=== PATIENT | female | born 1970 | race American Indian/Alaskan Native ===

== ENCOUNTER 2016-09-20 12:01 | Emergency (ER) | payer SELFPAY ==
--- NOTE | 2016-09-20 12:10 | Emergency Department Report ---
Chief Complaint: Dyspnea/Respdistress Stated Complaint: SOB/LEFT SWOLLEN FOOT Time Seen by Provider: 09/20/16 12:07 - HPI History of Present Illness: PT c/o cough x 2 weeks, + sob , + L foot swelling - ROS Review of Systems: - fever +orthopnea + productive cough - Exam Physical Exam: PT looks well, non toxic karly lung sounds clear + cough during evaluation MSE screening note: Focused history and physical exam performed. Due to findings the following was ordered: labs, ekg, xr ED Disposition for MSE Condition: Stable
[2016-09-20 12:38] LABS: Basophils % (Auto) 0.8 % (0.0-1.8); Eosinophils % (Auto) 0.5 % (0.0-4.3); Mean Corpuscular HGB Conc 29 % (30-34); Platelet Count 248 K/mm3 (140-440); Red Blood Count 3.77 M/mm3 (3.65-5.03); White Blood Count 7.7 K/mm3 (4.5-11.0)
[2016-09-20 12:39] LABS: Hemoglobin 7.1 gm/dl (10.1-14.3)
[2016-09-20 12:40] LABS: Hematocrit 24.6 % (30.3-42.9); Mean Corpuscular Hemoglobin 19 pg (28-32); Mean Corpuscular Volume 65 fl (79-97); Red Cell Distribution Width 22.9 % (13.2-15.2)
[2016-09-20 12:47] LABS: Alanine Aminotransferase 8 units/L (7-56); Albumin 3.9 g/dL (3.9-5); Albumin/Globulin Ratio 1.6 %; Alkaline Phosphatase 46 units/L (35-129); Anion Gap 17 mmol/L; BUN/Creatinine Ratio 8.18; Blood Urea Nitrogen 9 mg/dL (7-17); Calcium 8.5 mg/dL (8.4-10.2); Carbon Dioxide 22 mmol/L (22-30); Chloride 105.1 mmol/L (98-107); Glucose 88 mg/dL (65-100); Sodium 140 mmol/L (137-145); Total Protein 6.4 g/dL (6.3-8.2)
--- NOTE | 2016-09-20 12:56 | XRay Report ---
CHEST 2 VIEWS INDICATION: Dyspnea. COMPARISON: 02/09/2016 FINDINGS: PA and lateral chest radiographs again demonstrate borderline cardiomegaly and slightly prominent bronchovascular markings/congestion centrally. No large pleural effusions or CHF. Minimal fluid or thickening along the fissures again noted. Unremarkable bones. CONCLUSION: No significant interval change, as described. Thank you for the opportunity to participate in this patient's care.
[2016-09-20 13:53] LABS: Bacteria,Urine 1+ /HPF (Negative); Bilirubin,Urine NEG (Negative); Blood,Urine SM (Negative); Ketones,Urine NEG (Negative); Leukocyte Esterase,Urine SM (Negative); Mucus,Urine FEW /HPF; Nitrite,Urine NEG (Negative); Protein,Urine <15 mg/dL mg/dL (Negative); Urobilinogen,Urine < 2.0 mg/dL (<2.0)
--- NOTE | 2016-09-21 01:23 | Emergency Department Report ---
ED Shortness of Breath HPI - General Chief Complaint: Dyspnea/Respdistress Stated Complaint: SOB/LEFT SWOLLEN FOOT Time Seen by Provider: 09/20/16 12:07 Source: patient Mode of arrival: Ambulatory Limitations: No Limitations - History of Present Illness MD Complaint: shortness of breath, cough -: Gradual Severity: mild Quality: dull, aching Consistency: intermittent Improves With: nothing Worsens With: nothing Known History Of: asthma Context: recent URI Treatments Prior to Arrival: oxygen - Related Data Home Oxygen Therapy: No Previous Rx's Medication Instructions Recorded Last Taken Type ALBUTEROL Inhaler [ProAir HFA 2 puff IH QID PRN #1 inhalation 09/21/16 Unknown Rx Inhaler] Amoxicillin/K Clav Tab [Augmentin 1 tab PO Q12HR #20 tab 09/21/16 Unknown Rx 875MG TAB] Ferrous Gluconate [Fergon 325 MG 325 mg PO TID #60 tablet 09/21/16 Unknown Rx tab] Fluticasone [Flonase] 1 spray NS QDAY #1 bottle 09/21/16 Unknown Rx Hydrochlorothiazide [HCTZ] 25 mg PO QDAY #30 tablet 09/21/16 Unknown Rx Lisinopril [Zestril TAB] 20 mg PO QDAY #30 tablet 09/21/16 Unknown Rx Lisinopril/Hydrochlorothiazide 1 each PO DAILY #30 tablet 09/21/16 Unknown Rx [Zestoretic 20-12.5 mg] Lisinopril/Hydrochlorothiazide 1 tab PO QDAY #90 tab 09/21/16 Unknown Rx [Zestoretic 20-12.5 mg] Multivitamin Tab W-MINERAL 1 tab PO DAILY #30 tablet 09/21/16 Unknown Rx [Multiple Vitamin/Mineral (Theragran M)] Nitrofurantoin [place]/M-Cryst 100 mg PO Q12HR #14 capsule 09/21/16 Unknown Rx [Macrobid CAP] guaiFENesin/CODEINE [Robitussin AC] 10 ml PO QHS PRN #50 ml 09/21/16 Unknown Rx predniSONE [Deltasone] 50 mg PO QAM #5 tablet 09/21/16 Unknown Rx Allergies Allergy/AdvReac Type Severity Reaction Status Date / Time No Known Allergies Allergy Unverified 12/12/12 10:10 ED Review of Systems ROS: Stated complaint: SOB/LEFT SWOLLEN FOOT Other details as noted in HPI Comment: All other systems reviewed and negative ED Past Medical Hx - Past Medical History Previous Medical History?: Yes Hx Hypertension: Yes Additional medical history: anemia- states had a blood transfusion in 2013 - Surgical History Past Surgical History?: Yes Additional Surgical History: tubal ligation - Social History Smoking Status: Current Every Day Smoker Substance Use Type: Alcohol - Medications Home Medications: Home Medications Medication Instructions Recorded Confirmed Last Taken Type ALBUTEROL Inhaler [ProAir HFA 2 puff IH QID PRN #1 inhalation 09/21/16 Unknown Rx Inhaler] Amoxicillin/K Clav Tab [Augmentin 1 tab PO Q12HR #20 tab 09/21/16 Unknown Rx 875MG TAB] Ferrous Gluconate [Fergon 325 MG 325 mg PO TID #60 tablet 09/21/16 Unknown Rx tab] Fluticasone [Flonase] 1 spray NS QDAY #1 bottle 09/21/16 Unknown Rx Hydrochlorothiazide [HCTZ] 25 mg PO QDAY #30 tablet 09/21/16 Unknown Rx Lisinopril [Zestril TAB] 20 mg PO QDAY #30 tablet 09/21/16 Unknown Rx Lisinopril/Hydrochlorothiazide 1 each PO DAILY #30 tablet 09/21/16 Unknown Rx [Zestoretic 20-12.5 mg] Lisinopril/Hydrochlorothiazide 1 tab PO QDAY #90 tab 09/21/16 Unknown Rx [Zestoretic 20-12.5 mg] Multivitamin Tab W-MINERAL 1 tab PO DAILY #30 tablet 09/21/16 Unknown Rx [Multiple Vitamin/Mineral (Theragran M)] Nitrofurantoin [place]/M-Cryst 100 mg PO Q12HR #14 capsule 09/21/16 Unknown Rx [Macrobid CAP] guaiFENesin/CODEINE [Robitussin AC] 10 ml PO QHS PRN #50 ml 09/21/16 Unknown Rx predniSONE [Deltasone] 50 mg PO QAM #5 tablet 09/21/16 Unknown Rx ED Physical Exam - General Limitations: No Limitations General appearance: alert, in no apparent distress - Head Head exam: Present: atraumatic, normocephalic - Eye Eye exam: Present: normal appearance - ENT ENT exam: Present: mucous membranes moist - Neck Neck exam: Present: normal inspection - Respiratory Respiratory exam: Present: normal lung sounds bilaterally. Absent: respiratory distress - Cardiovascular Cardiovascular Exam: Present: regular rate, normal rhythm. Absent: systolic murmur, diastolic murmur, rubs, gallop - GI/Abdominal GI/Abdominal exam: Present: soft, normal bowel sounds - Extremities Exam Extremities exam: Present: normal inspection - Back Exam Back exam: Present: normal inspection - Neurological Exam Neurological exam: Present: alert, oriented X3 - Psychiatric Psychiatric exam: Present: normal affect, normal mood - Skin Skin exam: Present: warm, dry, intact, normal color. Absent: rash ED Course Vital Signs 09/20/16 09/21/16 09/21/16 12:05 00:09 00:10 Temperature 99 F 98.7 F Pulse Rate 110 H 104 H Respiratory 18 20 20 Rate Blood Pressure 168/109 Blood Pressure 168/114 [Left] O2 Sat by Pulse 100 98 98 Oximetry ED Medical Decision Making - Lab Data Result diagrams: 09/20/16 12:17 09/20/16 12:17 - EKG Data -: EKG Interpreted by Me - EKG Data Interpretation: no acute changes - Medical Decision Making patient been doing well, will refill her meds, cxr and ekg negative no evidence to admit at [facility]. Critical care attestation.: If time is entered above; I have spent that time in minutes in the direct care of this critically ill patient, excluding procedure time. ED Disposition Clinical Impression: UTI (urinary tract infection), Bifascicular bundle branch block Disposition: DC-01 TO HOME OR SELFCARE Is pt being admited?: No Does the pt Need Aspirin: No Condition: Good Prescriptions: guaiFENesin/CODEINE [Robitussin AC] 10 ml PO QHS PRN #50 ml PRN Reason: Cough ALBUTEROL Inhaler [ProAir HFA Inhaler] 2 puff IH QID PRN #1 inhalation PRN Reason: Shortness Of Breath Amoxicillin/K Clav Tab [Augmentin 875MG TAB] 1 tab PO Q12HR #20 tab Ferrous Gluconate [Fergon 325 MG tab] 325 mg PO TID #60 tablet Fluticasone [Flonase] 1 spray NS QDAY #1 bottle Hydrochlorothiazide [HCTZ] 25 mg PO QDAY #30 tablet Lisinopril [Zestril TAB] 20 mg PO QDAY #30 tablet Lisinopril/Hydrochlorothiazide [Zestoretic 20-12.5 mg] 1 each PO DAILY #30 tablet Lisinopril/Hydrochlorothiazide [Zestoretic 20-12.5 mg] 1 tab PO QDAY #90 tab Multivitamin Tab W-MINERAL [Multiple Vitamin/Mineral (Theragran M)] 1 tab PO DAILY #30 tablet Nitrofurantoin [place]/M-Cryst [Macrobid CAP] 100 mg PO Q12HR #14 capsule predniSONE [Deltasone] 50 mg PO QAM #5 tablet Referrals: PRIMARY CARE, [Primary Care Provider] - 3-5 Days Forms: Work/School Release Form(ED) Time of Disposition: 01:27
[2016-09-21] MEDS ORDERED: DUONEB 0.5 MG-3 MG/3 ML SOLN IH ONE (01:50)
[2016-09-21 02:49] VITALS: BP 155/99
== END 2016-09-21 02:50 | disposition home or self-care (01) ==
LOC: ED 12:01
DX: I45.2 Bifascicular block (principal); N39.0 Urinary tract infection, site not specified; I10 Essential (primary) hypertension; J45.909 Unspecified asthma, uncomplicated; F17.200 Nicotine dependence, unspecified, uncomplicated
CPT/HCPCS: 36415; 71020; 80053; 81001; 83880; 84484; 84703; 85025; 93005; 93010; 94640

== ENCOUNTER 2018-11-03 06:29 | Inpatient (IN) | payer OTHER ==
[2018-11-03] MEDS ORDERED: ASPIRIN PO ONE (06:54)
--- NOTE | 2018-11-03 07:24 | XRay Report ---
CHEST 1 VIEW INDICATION / CLINICAL INFORMATION: Chest Pain. COMPARISON: None available. FINDINGS: SUPPORT DEVICES: None. HEART / MEDIASTINUM: No significant abnormality. LUNGS / PLEURA: No significant pulmonary or pleural abnormality. No pneumothorax. ADDITIONAL FINDINGS: No significant additional findings. IMPRESSION: No acute pulmonary or pleural abnormality. No interval change from 09/20/2016. Signer Name: Mitesh Escobedo MD FACLesly Signed: 11/03/2018 7:20 AM Workstation Name: [email or web address]
[2018-11-03 07:25] LABS: Eosinophils % (Auto) 0.3 % (0.0-4.3); Monocytes # (Auto) 0.4 K/mm3 (0.0-0.8); Monocytes % (Auto) 8.1 % (0.0-7.3)
[2018-11-03 07:42] LABS: Red Blood Count 3.33 M/mm3 (3.65-5.03)
[2018-11-03] MEDS ORDERED: NITRO-BID 2% TP ONE (07:43)
[2018-11-03 07:44] LABS: Basophils % (Auto) 0.3 % (0.0-1.8); Hemoglobin 5.6 gm/dl (10.1-14.3); Lymphocytes # (Auto) 0.3 K/mm3 (1.2-5.4); Lymphocytes % (Auto) 4.9 % (13.4-35.0); Mean Corpuscular HGB Conc 28 % (30-34); Mean Corpuscular Volume 60 fl (79-97); Platelet Count 212 K/mm3 (140-440); Red Cell Distribution Width 22.4 % (13.2-15.2)
[2018-11-03] MEDS ORDERED: CATAPRES PO ONE (07:44)
[2018-11-03 07:47] LABS: BUN/Creatinine Ratio 15; Blood Urea Nitrogen 9 mg/dL (7-17); Calcium 8.6 mg/dL (8.4-10.2); Hemolysis Index 1
--- NOTE | 2018-11-03 07:50 | Emergency Department Report ---
HPI - General Chief Complaint: Chest Pain Time Seen by Provider: 11/03/18 07:36 - HPI HPI: Room 3 The patient is a 48-year-old female presenting with a chief complaint chest pain and weakness. The patient states since yesterday she felt weak and has had intermittent left-sided chest pain. Patient describes her chest pain is sharp dull pressure burning and aching in nature. Patient also admits to shortness of breath, diaphoresis and nausea without vomiting. Patient states she's never had a stress test or cardiac catheterization Location: [See above] Duration: [See above] Quality: [See above] Severity: [See above] Modifying factors: [see above] Context: [see above] Mode of transportation: [not driving] ED Past Medical Hx - Past Medical History Hx Hypertension: Yes Hx Heart Attack/AMI: Yes Additional medical history: anemia- states had a blood transfusion in 2013 - Surgical History Past Surgical History?: Yes Additional Surgical History: tubal ligation - Family History Family history: no significant - Social History Smoking Status: Current Every Day Smoker (1/2 pack per day) Substance Use Type: None (denies illicit drug use), Alcohol (frequently) - Medications Home Medications: Home Medications Medication Instructions Recorded Confirmed Last Taken Type ALBUTEROL Inhaler (OR & NICU) 2 puff IH QID PRN #1 inhalation 09/21/16 Unknown Rx [ProAir HFA Inhaler] Amoxicillin/K Clav Tab [Augmentin 1 tab PO Q12HR #20 tab 09/21/16 Unknown Rx 875MG TAB] Ferrous Gluconate [Fergon 325 MG 325 mg PO TID #60 tablet 09/21/16 Unknown Rx tab] Fluticasone [Flonase] 1 spray NS QDAY #1 bottle 09/21/16 Unknown Rx Lisinopril [Zestril TAB] 20 mg PO QDAY #30 tablet 09/21/16 Unknown Rx Lisinopril/Hydrochlorothiazide 1 each PO DAILY #30 tablet 09/21/16 Unknown Rx [Zestoretic 20-12.5 mg] Lisinopril/Hydrochlorothiazide 1 tab PO QDAY #90 tab 09/21/16 Unknown Rx [Zestoretic 20-12.5 mg] Multivitamin Tab W-MINERAL 1 tab PO DAILY #30 tablet 09/21/16 Unknown Rx [Multiple Vitamin/Mineral (Theragran M)] Nitrofurantoin [place]/M-Cryst 100 mg PO Q12HR #14 capsule 09/21/16 Unknown Rx [Macrobid CAP] guaiFENesin/CODEINE [Robitussin AC] 10 ml PO QHS PRN #50 ml 09/21/16 Unknown Rx hydroCHLOROthiazide [HCTZ] 25 mg PO QDAY #30 tablet 09/21/16 Unknown Rx predniSONE [Deltasone] 50 mg PO QAM #5 tablet 09/21/16 Unknown Rx ED Review of Systems ROS: Stated complaint: CHEST PAIN SOB Other details as noted in HPI Constitutional: diaphoresis Eyes: denies: eye pain ENT: denies: throat pain Respiratory: shortness of breath Cardiovascular: chest pain Endocrine: no symptoms reported Gastrointestinal: nausea. denies: vomiting Genitourinary: denies: dysuria Musculoskeletal: denies: back pain Neurological: denies: headache Physical Exam - Physical Exam Vital Signs: Vital Signs 11/03/18 06:51 Temperature 98.6 F Pulse Rate 99 H Respiratory 20 Rate Blood Pressure 170/94 O2 Sat by Pulse 99 Oximetry Physical Exam: GENERAL: The patient is well-developed well-nourished female lying on stretcher not appearing to be in acute distress. [] HEENT: Normocephalic. Atraumatic. Extraocular motions are intact. Patient has moist mucous membranes. NECK: Supple. Trachea midline CHEST/LUNGS: Clear to auscultation. There is no respiratory distress noted. HEART/CARDIOVASCULAR: Regular. There is no tachycardia. There is no gallop rub or murmur. ABDOMEN: Abdomen is soft, nontender. Patient has normal bowel sounds. There is no abdominal distention. SKIN: There is no rash. There is no edema. There is no diaphoresis. NEURO: The patient is awake, alert, and oriented. The patient is cooperative. The patient has normal speech MUSCULOSKELETAL: There is no evidence of acute injury. ED Course Vital Signs 11/03/18 06:51 Temperature 98.6 F Pulse Rate 99 H Respiratory 20 Rate Blood Pressure 170/94 O2 Sat by Pulse 99 Oximetry ED Medical Decision Making - Lab Data Result diagrams: 11/03/18 06:58 11/03/18 06:58 Laboratory Tests 11/03/18 11/03/18 06:58 06:58 WBC 5.2 RBC 3.33 L Hgb 5.6 L* Hct 20.0 L MCV 60 L MCH 17 L MCHC 28 L RDW 22.4 H Plt Count 212 Lymph % (Auto) 4.9 L [place] % (Auto) 8.1 H Eos % (Auto) 0.3 Baso % (Auto) 0.3 Lymph # 0.3 L [place] # 0.4 Eos # 0.0 Baso # 0.0 Seg Neutrophils % 86.4 H Seg Neutrophils # 4.5 Sodium 141 Potassium 3.7 Chloride 105.8 Carbon Dioxide 20 L Anion Gap 19 BUN 9 Creatinine 0.6 L Estimated GFR > 60 BUN/Creatinine Ratio 15 Glucose 82 Calcium 8.6 Troponin T < 0.010 - EKG Data -: EKG Interpreted by Me EKG shows normal: sinus rhythm Rate: normal - EKG Data When compared to previous EKG there are: no significant change Interpretation: unchanged when compared t (09/20/2016) - Radiology Data Radiology results: report reviewed (chest x-ray), image reviewed (chest x-ray) interpreted by me: Chest x-ray-no focal infiltrate, no pneumothorax [facility] [address] [place] [address] XRay Report Signed Patient: NADEGE NEWSOME MR#: [id number] : 1970 Acct:[id number] Age/Sex: 48 / F ADM Date: 11/03/18 Loc: ED Attending Dr: Ordering Physician: YOHAN HOOVER MD Date of Service: 11/03/18 Procedure(s): XR chest 1V ap Accession Number(s): [id number] cc: ED MD SNEHA Fluoro Time In Minutes: CHEST 1 VIEW INDICATION / CLINICAL INFORMATION: Chest Pain. COMPARISON: None available. FINDINGS: SUPPORT DEVICES: None. HEART / MEDIASTINUM: No significant abnormality. LUNGS / PLEURA: No significant pulmonary or pleural abnormality. No pneumothorax. ADDITIONAL FINDINGS: No significant additional findings. IMPRESSION: No acute pulmonary or pleural abnormality. No interval change from 09/20/2016. Signer Name: Mitesh Escobedo MD FACR Signed: 11/03/2018 7:20 AM Workstation Name: [id number] Transcribed By: MS Dictated By: Mitesh Escobedo MD Electronically Authenticated By: Mitesh Escobedo MD Signed Date/Time: 11/03/18719 DD/ TD/TT: - Differential Diagnosis ACS, symptomatic anemia, pericarditis, GERD Critical care attestation.: If time is entered above; I have spent that time in minutes in the direct care of this critically ill patient, excluding procedure time. ED Disposition Clinical Impression: Chest pain, Symptomatic anemia Disposition: OP ADMIT IP TO THIS HOSP Is pt being admited?: Yes Does the pt Need Aspirin: Yes Condition: Fair Instructions: Chest Pain (ED) Referrals: YASMIN RUVALCABA MD [Primary Care Provider] - 3-5 Days Time of Disposition: 08:06 (hospitalist paged)
[2018-11-03] MEDS ORDERED: NACL 0.9% 500 ML 500 ML IV ONE ×2 (08:05→08:26)
[2018-11-03] MEDS ORDERED: NACL 0.9% 500 ML 500 ML ONE ×2 (09:39→12:29)
[2018-11-03] MEDS ORDERED: APRESOLINE IV ONE (12:17)
--- NOTE | 2018-11-03 12:38 | History and Physical Report ---
History of Present Illness Date of examination: 11/03/18 Date of admission: 11/03/18 08:22 Chief complaint: chest pain History of present illness: Patient is 48 yo with history of hypertension, obesity, uterine fibroids with menorrhagia. She presents with chest pain and shortness of breath for 1 day. Chest pain is 9 out of 10 in intensity, left-sided, like a tightness, worse on exertion improves with rest. She also has shortness of breath which is worse on exertion. And dizziness. She was concerned therefore came to Emergency department for further evaluation. In the emergency department she was found to have a hemoglobin of 5.6. Troponin is normal. Will admit for transfusion and to rule out acute coronary syndrome. Patient has history of uterine fibroids with menorrhagia having heavy bleeding for 7-10 days. shee states that she is having difficulty getting insurance to approve surgery. Past History Past Medical History: heart failure (systolic), hypertension, other (Fibroid, menorrhagia) Past Surgical History: Other (tubal ligation) Social history: lives with family, smoking (1 pack a day), full code, other (Alcohol 2-3 times a week) Family history: diabetes, hypertension Medications and Allergies Allergies Allergy/AdvReac Type Severity Reaction Status Date / Time No Known Allergies Allergy Unverified 12/12/12 10:10 Home Medications Medication Instructions Recorded Confirmed Last Taken Type Carvedilol [Coreg] 6.25 mg PO BIDWM 11/03/18 11/03/18 Unknown History Furosemide [Lasix TAB] 40 mg PO QDAY 11/03/18 11/03/18 Unknown History Review of Systems All systems: negative (No fever, no cough, no abdominal pain, All other systenms reviewed and are negative) Exam - Physical Exam Narrative exam: Gen: Not in acute distress, lying in bed, obese HEENT: Normocephalic, atraumatic Neck: supple, no JVD Heart: S1 and S2 reg, no murmurs, rubs or gallop Lungs: Clear, no crackles, no rhonchi Abd: soft, non tender, non distended, normal BS, Ext: No edema, no clubbing, no cyanosis Neuro: Awake,alert, Oriented X 3. No focal neuro signs Psych: normal mood - Constitutional Vitals: Temp Pulse Resp BP Pulse Ox 98.3 F 87 18 179/94 100 08/02/19 12:14 11/03/18 12:14 11/03/18 12:14 11/03/18 12:14 11/03/18 12:14 Results - Labs CBC & Chem 7: 11/04/18 04:49 11/04/18 04:49 Labs: Abnormal lab results 11/03/18 11/03/18 11/03/18 Range/Units 06:58 06:58 07:30 RBC 3.33 L (3.65-5.03) M/mm3 Hgb 5.6 L* (10.1-14.3) gm/dl Hct 20.0 L (30.3-42.9) % MCV 60 L (79-97) fl MCH 17 L (28-32) pg MCHC 28 L (30-34) % RDW 22.4 H (13.2-15.2) % Lymph % (Auto) 4.9 L (13.4-35.0) % [place] % (Auto) 8.1 H (0.0-7.3) % Lymph # 0.3 L (1.2-5.4) K/mm3 Seg Neutrophils % 86.4 H (40.0-70.0) % Carbon Dioxide 20 L (22-30) mmol/L Creatinine 0.6 L (0.7-1.2) mg/dL Crossmatch See Detail Assessment and Plan Chest pain Admit to Telemetry to r/o acute coronary syndrome Aspirin Serial Troponins Stress test tomorrow after anemia controlled Anemia due to chronic blood loss from fibroids Transfuse 3 units PRBC To follow up as outpatient Uterine fibroids with menorrhagia Chronic systolic CHF Will obtain Echo Continue lasix and Coreg Obesity I counseled her on diet Full code status.
[2018-11-03] MEDS ORDERED: APRESOLINE IV PRN (16:38)
[2018-11-03] MEDS ORDERED: MORPHINE IV PRN (16:46)
[2018-11-03] MEDS ORDERED: ZOFRAN IV PRN (16:46)
[2018-11-03] MEDS ORDERED: SODIUM CHLORIDE FLUSH SYRINGE 10 ML IV PRN ×2 (16:46→18:57)
[2018-11-03] MEDS ORDERED: TYLENOL PO PRN (16:46)
[2018-11-03 17:21] LABS: Hematocrit 25.8 % (30.3-42.9); Hemoglobin 7.7 gm/dl (10.1-14.3)
[2018-11-03] MEDS: NORVASC PO SCH (17:28)
[2018-11-03] MEDS: LASIX PO SCH (17:29)
[2018-11-03] MEDS: COREG PO SCH ×2 (17:29→23:08)
[2018-11-03] MEDS ORDERED: NITROSTAT SL PRN (18:57)
[2018-11-03] MEDS ORDERED: NACL 0.9% 500 ML 500 ML IV NR (19:01)
[2018-11-03] MEDS: SODIUM CHLORIDE FLUSH SYRINGE 10 ML IV SCH (23:09)
[2018-11-04 05:38] LABS: Hematocrit 29.5 % (30.3-42.9); Hemoglobin 9.1 gm/dl (10.1-14.3); Mean Corpuscular HGB Conc 31 % (30-34); Mean Corpuscular Volume 67 fl (79-97); Platelet Count 180 K/mm3 (140-440); Red Blood Count 4.44 M/mm3 (3.65-5.03); Red Cell Distribution Width 27.9 % (13.2-15.2)
[2018-11-04 05:43] LABS: BUN/Creatinine Ratio 10; Blood Urea Nitrogen 5 mg/dL (7-17); Calcium 9.1 mg/dL (8.4-10.2); Hemolysis Index 17
[2018-11-04 06:47] LABS: Total Cells Counted 100
[2018-11-04 06:48] LABS: Anisocytosis 3+; Poikilocytosis 3+
[2018-11-04 06:51] LABS: Platelet Estimate Consistent w Auto
[2018-11-04] MEDS ORDERED: LEXISCAN IV ONE ×2 (08:10→08:48)
[2018-11-04] MEDS: LASIX PO SCH (11:15)
[2018-11-04] MEDS: COREG PO SCH ×2 (11:15→21:20)
[2018-11-04] MEDS: NORVASC PO SCH (11:15)
[2018-11-04] MEDS: SODIUM CHLORIDE FLUSH SYRINGE 10 ML IV SCH ×2 (11:16→21:21)
--- NOTE | 2018-11-04 13:41 | Treadmill Report ---
NUCLEAR STRESS TEST REPORT DESCRIPTION OF PROCEDURE: The patient was brought to the Nuclear Cardiology Lab and Lexiscan stress test was performed and subsequently nuclear images were obtained. The patient tolerated the Lexiscan testing well with no significant EKG abnormalities. Post-stress images reveal anteroapical defect and mild inferior defect, both appear to improve slightly during rest. Accompanying gated study shows severe left ventricular systolic dysfunction with a calculated ejection fraction of 29%. IMPRESSION: 1. Abnormal nuclear stress test with severe left ventricular systolic dysfunction with ejection fraction of 29%. 2. Anteroapical defect which is mostly fixed with minimal improvement during rest. This may represent previous infarction in this area. 3. Suggest clinical correlation. JOB# [id number] ANKITA/NTS
--- NOTE | 2018-11-04 14:22 | Progress Note ---
Assessment and Plan Assessment and plan: Chest pain Admitted to Telemetry Aspirin Serial Troponins Stress test abnormal For cardiac cath on Tuesday. I discussed with Dr. Albania Hubbard, cardiology patient states she did cardiac cath about 3 yrs ago at [facility]. Records requested Anemia due to chronic blood loss from fibroids Transfused 3 units PRBC To follow up as outpatient Uterine fibroids with menorrhagia Chronic systolic CHF Will obtain Echo Continue lasix and Coreg Obesity I counseled her on diet Full code status. Hospitalist Physical - Physical exam Narrative exam: Gen: Not in acute distress, lying in bed, obese HEENT: Normocephalic, atraumatic Neck: supple, no JVD Heart: S1 and S2 reg, no murmurs, rubs or gallop Lungs: Clear, no crackles, no rhonchi Abd: soft, non tender, non distended, normal BS, Ext: No edema, no clubbing, no cyanosis Neuro: Awake,alert, Oriented X 3. No focal neuro signs Psych: normal mood - Constitutional Vitals: Temp Pulse Resp BP Pulse Ox 98.1 F 80 18 155/91 100 11/04/18 11:10 11/04/18 04:01 11/04/18 11:10 11/04/18 11:15 11/04/18 04:01 Results - Labs CBC & Chem 7: 11/04/18 04:49 11/04/18 04:49 Labs: Laboratory Last Values WBC 3.9 K/mm3 (4.5-11.0) L 11/04/18 04:49 RBC 4.44 M/mm3 (3.65-5.03) 11/04/18 04:49 Hgb 9.1 gm/dl (10.1-14.3) L 11/04/18 04:49 Hct 29.5 % (30.3-42.9) L 11/04/18 04:49 MCV 67 fl (79-97) L 11/04/18 04:49 MCH 21 pg (28-32) L 11/04/18 04:49 MCHC 31 % (30-34) 11/04/18 04:49 RDW 27.9 % (13.2-15.2) H 11/04/18 04:49 Plt Count 180 K/mm3 (140-440) 11/04/18 04:49 Lymph % (Auto) Automatic Thread Winder 11/04/18 04:49 [place] % (Auto) 8.1 % (0.0-7.3) H 11/03/18 06:58 Eos % (Auto) 0.3 % (0.0-4.3) 11/03/18 06:58 Baso % (Auto) Automatic Thread Winder 11/04/18 04:49 Lymph # 0.3 K/mm3 (1.2-5.4) L 11/03/18 06:58 [place] # 0.4 K/mm3 (0.0-0.8) 11/03/18 06:58 Eos # 0.0 K/mm3 (0.0-0.4) 11/03/18 06:58 Baso # 0.0 K/mm3 (0.0-0.1) 11/03/18 06:58 Add Manual Diff Complete 11/04/18 04:49 Total Counted 100 11/04/18 04:49 Seg Neutrophils % Automatic Thread Winder 11/04/18 04:49 Seg Neuts % (Manual) 73.0 % (40.0-70.0) H 11/04/18 04:49 0 % 11/04/18 04:49 21.0 % (13.4-35.0) 11/04/18 04:49 Reactive Lymphs % (Man) 0 % 11/04/18 04:49 3.0 % (0.0-7.3) 11/04/18 04:49 2.0 % (0.0-4.3) 11/04/18 04:49 1.0 % (0.0-1.8) 11/04/18 04:49 0 % 11/04/18 04:49 0 % 11/04/18 04:49 0 % 11/04/18 04:49 0 % 11/04/18 04:49 Nucleated RBC % Not Reportable 11/04/18 04:49 Seg Neutrophils # 4.5 K/mm3 (1.8-7.7) 11/03/18 06:58 Seg Neutrophils # Man 2.8 K/mm3 (1.8-7.7) 11/04/18 04:49 Band Neutrophils # 0.0 K/mm3 11/04/18 04:49 0.8 K/mm3 (1.2-5.4) L 11/04/18 04:49 Abs React Lymphs (Man) 0.0 K/mm3 11/04/18 04:49 0.1 K/mm3 (0.0-0.8) 11/04/18 04:49 0.1 K/mm3 (0.0-0.4) 11/04/18 04:49 0.0 K/mm3 (0.0-0.1) 11/04/18 04:49 0.0 K/mm3 11/04/18 04:49 0.0 K/mm3 11/04/18 04:49 0.0 K/mm3 11/04/18 04:49 Blast Cells # 0.0 K/mm3 11/04/18 04:49 WBC Morphology Not Reportable 11/04/18 04:49 Hypersegmented Neuts Not Reportable 11/04/18 04:49 Hyposegmented Neuts Not Reportable 11/04/18 04:49 Hypogranular Neuts Not Reportable 11/04/18 04:49 Not Reportable 11/04/18 04:49 Not Reportable 11/04/18 04:49 Not Reportable 11/04/18 04:49 Not Reportable 11/04/18 04:49 Not Reportable 11/04/18 04:49 Not Reportable 11/04/18 04:49 Consistent w auto 11/04/18 04:49 Not Reportable 11/04/18 04:49 Plt Clumps, EDTA Not Reportable 11/04/18 04:49 Not Reportable 11/04/18 04:49 Not Reportable 11/04/18 04:49 Not Reportable 11/04/18 04:49 Plt Morphology Comment Giant platelets 11/04/18 04:49 RBC Morphology Not Reportable 11/04/18 04:49 Dimorphic RBCs Not Reportable 11/04/18 04:49 Not Reportable 11/04/18 04:49 Not Reportable 11/04/18 04:49 3+ 11/04/18 04:49 3+ 11/04/18 04:49 Few 11/04/18 04:49 Not Reportable 11/04/18 04:49 Not Reportable 11/04/18 04:49 Not Reportable 11/04/18 04:49 Not Reportable 11/04/18 04:49 Not Reportable 11/04/18 04:49 Not Reportable 11/04/18 04:49 Not Reportable 11/04/18 04:49 Not Reportable 11/04/18 04:49 Not Reportable 11/04/18 04:49 Not Reportable 11/04/18 04:49 Not Reportable 11/04/18 04:49 Not Reportable 11/04/18 04:49 Not Reportable 11/04/18 04:49 Few 11/04/18 04:49 Acanthocytes (Spur) Not Reportable 11/04/18 04:49 Rouleaux Not Reportable 11/04/18 04:49 Not Reportable 11/04/18 04:49 Not Reportable 11/04/18 04:49 Not Reportable 11/04/18 04:49 Not Reportable 11/04/18 04:49 Hem Pathologist Commnt No 11/04/18 04:49 Sodium 136 mmol/L (137-145) L 11/04/18 04:49 Potassium 3.5 mmol/L (3.6-5.0) L 11/04/18 04:49 Chloride 100.8 mmol/L (98-107) 11/04/18 04:49 Carbon Dioxide 24 mmol/L (22-30) 11/04/18 04:49 15 mmol/L 11/04/18 04:49 BUN 5 mg/dL (7-17) L 11/04/18 04:49 0.5 mg/dL (0.7-1.2) L 11/04/18 04:49 Estimated GFR > 60 ml/min 11/04/18 04:49 10 % 11/04/18 04:49 Glucose 89 mg/dL (65-100) 11/04/18 04:49 Calcium 9.1 mg/dL (8.4-10.2) 11/04/18 04:49 < 0.010 ng/mL (0.00-0.029) 11/04/18 04:49 Blood Type B POSITIVE 11/03/18 07:30 Antibody Screen Negative 11/03/18 07:30 Crossmatch See Detail 11/03/18 07:30 Active Medications - Current Medications Current Medications: Generic Name Dose Route Start Last Admin Trade Name Freq PRN Reason Stop Dose Admin Acetaminophen 650 mg 11/03/18 16:46 Tylenol PO Q4H PRN Pain MILD(1-3)/Fever >100.5/CAMACHO Amlodipine Besylate 5 mg 11/03/18 17:00 11/04/18 11:15 Norvasc PO 5 mg QDAY JOVANY Administration Carvedilol 6.25 mg 11/03/18 13:00 11/04/18 11:15 Coreg PO 6.25 mg BID JOVANY Administration Furosemide 40 mg 11/03/18 13:00 11/04/18 11:15 Lasix PO 40 mg QDAY JOVANY Administration Hydralazine HCl 10 mg 11/03/18 16:38 Apresoline IV Q4HR PRN SBP>170 or DBP>110 Morphine Sulfate 2 mg 11/03/18 16:46 Morphine IV Q4H PRN Pain, Moderate (4-6) Nitroglycerin 0.4 mg 11/03/18 18:57 Nitrostat SL Q5M PRN Chest Pain Ondansetron HCl 4 mg 11/03/18 16:46 Zofran IV Q8H PRN Nausea And Vomiting Sodium Chloride 10 ml 11/03/18 22:00 11/04/18 11:16 Sodium Chloride Flush Syringe 10 Ml IV 10 ml BID JOVANY Administration Sodium Chloride 10 ml 11/03/18 16:46 Sodium Chloride Flush Syringe 10 Ml IV PRN PRN LINE FLUSH Sodium Chloride 10 ml 11/03/18 18:57 Sodium Chloride Flush Syringe 10 Ml IV PRN PRN LINE FLUSH
--- NOTE | 2018-11-04 15:16 | Consultation ---
HISTORY OF PRESENT ILLNESS: The patient is a 48-year-old female who comes to the Emergency Room complaining about chest pain and general weakness and she also had mild difficulty in breathing, chest pain is described as sharp and occasionally burning type of nature. This has been going on for the last 2-3 weeks. Shortness of breath has been worsening. The patient is known to have longstanding history of hypertension. About 3-4 years ago, the patient was admitted with congestive heart failure to [facility], [place] and apparently she had a cardiac catheterization done at that time, which was negative for significant coronary artery disease. The patient smokes about half pack per day, drinks alcohol fairly regularly. The patient is also known to have had anemia. There is questionable history of myocardial infarction in the past. REVIEW OF SYSTEMS: HEAD, EYES, EARS, NOSE AND THROAT: No symptoms. ENDOCRINE: No history of diabetes. GASTROINTESTINAL: No abdominal pain, nausea, or vomiting. Bowel habits have been regular. GENITOURINARY: No symptoms. CENTRAL NERVOUS SYSTEM: No history of cerebrovascular accident or convulsive disorder. CARDIOVASCULAR: As mentioned earlier. PHYSICAL EXAMINATION: GENERAL: Adult female, well built, well nourished, in no distress. VITAL SIGNS: Blood pressure 150/90, pulse 80, respirations 18. HEENT: Unremarkable. NECK: Supple. No thyromegaly. Both carotids are palpable and equal. Neck veins are flat. CHEST: Symmetrical. LUNGS: Clear. HEART: S1 and S2 are heard well. No S3. ABDOMEN: Soft, nontender, no hepatosplenomegaly. Peristaltic sounds are heard. EXTREMITIES: No significant edema or calf tenderness. LABORATORY DATA: EKG: Sinus rhythm, right bundle branch block. Initial hemoglobin was 5.6. Today's hemoglobin is noted to be 9.1. Sodium 136, potassium 3.5, BUN 5, creatinine 0.5, troponin negative. NUCLEAR STRESS TEST: The patient underwent a nuclear stress test, which showed an ejection fraction of 28-29%, anteroapical mostly fixed defect with mild reversibility, which may indicate previous infarction in this area with jassi-infarction ischemia. IMPRESSION: 1. Cardiomyopathy with severe left ventricular systolic dysfunction, ejection fraction 29%. 2. Possible coronary artery disease with previous anteroapical infarction. 3. Hypertension. 4. History of chronic smoking. The patient is seen for cardiac evaluation. Clinically, she seems to be improving. PLAN: To obtain the old records and review the same. We will consider obtaining a cardiac catheterization on Tuesday. This is explained to the patient in detail. Thank you, Dr. Otero for allowing me to participate in the care of this pleasant lady. JOB# [id number] KBM/NTS
[2018-11-04] MEDS ORDERED: K-DUR PO ONE (21:13)
[2018-11-04] MEDS: ECOTRIN PO SCH (21:20)
[2018-11-04] MEDS: NITRO-BID 2% TP SCH (21:20)
[2018-11-04] MEDS: HEPARIN SUB-Q SCH (21:22)
[2018-11-05 06:22] LABS: BUN/Creatinine Ratio 10; Blood Urea Nitrogen 6 mg/dL (7-17); Calcium 9.2 mg/dL (8.4-10.2); Hemolysis Index 2
[2018-11-05] MEDS: ECOTRIN PO SCH (09:38)
[2018-11-05] MEDS: COREG PO SCH (09:38)
[2018-11-05] MEDS: LASIX PO SCH (09:39)
[2018-11-05] MEDS: NITRO-BID 2% TP SCH (09:39)
[2018-11-05] MEDS: NORVASC PO SCH (09:39)
[2018-11-05] MEDS: SODIUM CHLORIDE FLUSH SYRINGE 10 ML IV SCH (09:40)
[2018-11-05 09:44] VITALS: BP 150/85
[2018-11-05] MEDS: HEPARIN SUB-Q SCH (09:44)
--- NOTE | 2018-11-05 11:52 | Discharge Summary ---
Providers - Providers Date of Admission: 11/03/18 08:22 Date of discharge: 11/05/18 Attending physician: LUZ ELENA OREILLY 11/03/18 Consult to Cardiac Rehabilitation [CONS] Routine Reason For Exam: Phase I 11/03/18 15:05 Speech Therapy Evaluation and Treat [CONS] Routine Reason For Exam: swallow eval 11/04/18 11:41 Consult to Physician [CONS] Routine Comment: Consulting Provider: RADHA HUBBARD Physician Instructions: Reason For Exam: Chest pain, abnormal stress test Primary care physician: [facility] MD ERICK Hospitalization Condition: Fair Disposition: DC-01 TO HOME OR SELFCARE Core Measure Documentation - Palliative Care Palliative Care/ Comfort Measures: Not Applicable - Core Measures Any of the following diagnoses?: heart failure Exam - Constitutional Vitals: Temp Pulse Resp BP Pulse Ox 98.0 F 84 18 150/85 100 11/05/18 07:49 11/05/18 10:00 11/05/18 07:49 11/05/18 09:39 11/05/18 05:01 Plan Activity: advance as tolerated Diet: low fat, low cholesterol, low salt Additional Instructions: 1.Follow up with PCP or [facility] in 1 week. 2.Follow up with Dr. Albania Hubbard, cardiology in 1 week Follow up with: YASMIN RUVALCABA MD [Primary Care Provider] - 3-5 Days Forms: Work/School Release Form
[2018-11-05] MEDS ORDERED: ZESTRIL PO SCH (12:00)
--- NOTE | 2018-11-05 13:21 | Progress Note ---
Assessment and Plan Patient is doing better today she has no significant chest pain and difficulty breathing or palpitations. Patient had a cardiac catheterization done in February 2017 which showed no significant obstructive disease. She was noted to have a apical clot at that time and ejection fraction was about 30%. Currently the ejection fraction is 35-40% plan at this time is to continue with MARTY inhibitor and beta toya and monitor closely. Patient will be evaluated as an outpatient in about a week or 10 days. Case discussed with . Patient is advised to be on a strict low-sodium diet and to exercise regularly and also be compliant with low medications as well as cardiology follow up. - Patient Problems (1) Cardiomyopathy Current Visit: Yes Status: Acute (2) Chest pain Current Visit: Yes Status: Acute (3) Symptomatic anemia Current Visit: Yes Status: Acute Subjective Date of service: 11/05/18 Interval history: Patient is feeling well today. No chest pain. Dyspnea has improved. Objective Vital Signs Temp Pulse Pulse Resp BP Pulse Ox 11/05/18 10:00 84 11/05/18 09:39 80 150/85 11/05/18 09:38 80 150/85 11/05/18 07:49 98.0 F 18 150/83 11/05/18 07:39 89 18 11/05/18 05:01 98.2 F 76 18 145/89 100 11/04/18 23:50 98.2 F 74 18 137/76 100 11/04/18 23:11 83 11/04/18 19:35 98.0 F 92 H 18 133/77 99 11/04/18 16:34 98.6 F 18 142/87 - Physical Examination General: Appears Well Neck: Positive: neck supple Cardiac: Positive: Reg Rate and Rhythm Lungs: Positive: clear to auscultation Neuro: Positive: Grossly Intact Abdomen: Positive: Soft Extremities: Present: normal - Labs and Meds Comprehensive Metabolic Panel 11/05/18 Range/Units 05:40 Sodium 140 (137-145) mmol/L Potassium 4.1 (3.6-5.0) mmol/L Chloride 105.9 (98-107) mmol/L Carbon Dioxide 25 (22-30) mmol/L BUN 6 L (7-17) mg/dL Creatinine 0.6 L (0.7-1.2) mg/dL Glucose 100 (65-100) mg/dL Calcium 9.2 (8.4-10.2) mg/dL
== END 2018-11-05 13:05 | disposition home or self-care (01) | DRG 760 ==
LOC: ED 06:29 → 4A 08:22
PROVIDERS: ADMIT Internal Medicine; ATTEND Internal Medicine
PROC: 30233N1 Transfusion of Nonautologous Red Blood Cells into Peripheral Vein, Percutaneous Approach (ICD-10-PCS; principal; 2018-11-03)
DX: D25.9 Leiomyoma of uterus, unspecified (principal); I50.22 Chronic systolic (congestive) heart failure; Z88.8 Allergy status to other drugs, medicaments and biological substances; I25.2 Old myocardial infarction; Z98.51 Tubal ligation status; F17.200 Nicotine dependence, unspecified, uncomplicated; Z79.899 Other long term (current) drug therapy; E66.9 Obesity, unspecified; Z68.30 Body mass index [BMI] 30.0-30.9, adult; Z83.3 Family history of diabetes mellitus; Z82.49 Family history of ischemic heart disease and other diseases of the circulatory system; I11.0 Hypertensive heart disease with heart failure; D50.0 Iron deficiency anemia secondary to blood loss (chronic); Z71.3 Dietary counseling and surveillance; R07.89 Other chest pain
CPT/HCPCS: 36415; 71045; 78452; 80048; 82270; 84484; 85007; 85014; 85018; 85025; 86850; 86900; 86901; 86920; 87116; 93005; 93010; 93017; 93306; G0378; A9502; J0360; J1644; J2785; J7040; P9016

== ENCOUNTER 2019-02-06 07:44 | Emergency (ER) | payer SELFPAY ==
--- NOTE | 2019-02-06 08:27 | Emergency Department Report ---
ED General Adult HPI - General Chief complaint: Dyspnea/Respdistress Stated complaint: VOMITING/WEAK/LIGHT HEADED Time Seen by Provider: 02/06/19 08:24 Source: patient Mode of arrival: Ambulatory Limitations: No Limitations - History of Present Illness Initial comments: This is a 48-year-old female with a history of cardiomyopathy. She was admitted to this hospital in November and not seen a doctor since. Per the discharge summary to follow, she had symptomatic anemia requiring 3 units of blood. She has history of normal cardiac cath RE coronary arteries with the presence of a left atrial clot. She states she has an appointment with cardiology on February 13. She states he is still taking Lasix, potassium, calcium and I believe Carvedilol. Patient presented today for cough largely nonproductive associated with wheeze. She was concerned because she had one episode of posttussive emesis today. She does not have any ongoing nausea. She denies chest pain or abdominal pain. She states that she feels somewhat weak. She thinks she has the flu. Prior discharge summary: Hospitalization Condition: Fair Hospital course: Patient is 48 yo with history of hypertension, obesity, uterine fibroids with menorrhagia. She presents with chest pain and shortness of breath, dizziness. She was concerned therefore came to Emergency department for further evaluation. In the emergency department she was found to have a hemoglobin of 5.6. She was admitted, transfused 3 Units PRBC, hemoglobin came up to 9.1. Stress test was abnormal. She was evaluated by Cardiology. Records from [facility] show she had normal cardiac cath in Feb 2017. At that time she had LA clot which is not seen in current Echo. She was then discharged home. Total time spent on discharge, 34 mins Disposition: DC-01 TO HOME OR SELFCARE - Discharge Diagnoses (1) Uterine fibroid Status: Acute (2) Menorrhagia Status: Acute (3) Anemia due to chronic blood loss Status: Acute (4) Cardiomyopathy Status: Acute (5) Chest pain Status: Acute (6) Symptomatic anemia Status: Acute (7) UTI (urinary tract infection) Status: Acute (8) Chronic systolic CHF (congestive heart failure) Status: Acute - Related Data Home Medications Medication Instructions Recorded Confirmed Last Taken Carvedilol [Coreg] 6.25 mg PO BIDWM 11/03/18 11/03/18 Unknown Furosemide [Lasix TAB] 40 mg PO QDAY 11/03/18 11/03/18 Unknown Aspirin [Adult Aspirin] 81 mg PO DAILY 11/04/18 11/04/18 11/02/18 08:00 AtorvaSTATin 20 mg PO DAILY 11/04/18 11/04/18 11/02/18 21:00 Previous Rx's Medication Instructions Recorded Last Taken Type Albuterol Sulfate [Proventil Hfa] 6.7 gm IH Q4H PRN #1 hfa.aer.ad 02/06/19 Unknown Rx Azithromycin [Zithromax Z-SHIRA] 250 mg PO DAILY #6 tab 02/06/19 Unknown Rx Ferrous Gluconate [Ferrous 324 mg PO TID #30 tablet 02/06/19 Unknown Rx Gluconate 324 MG] Allergies Allergy/AdvReac Type Severity Reaction Status Date / Time lisinopril AdvReac Angioedema Verified 11/05/18 12:21 ED Review of Systems ROS: Stated complaint: VOMITING/WEAK/LIGHT HEADED Other details as noted in HPI Constitutional: denies: chills, fever Eyes: denies: eye pain, eye discharge, vision change ENT: denies: ear pain, throat pain Respiratory: cough. denies: shortness of breath, wheezing Cardiovascular: denies: chest pain, palpitations Endocrine: no symptoms reported Gastrointestinal: denies: abdominal pain, nausea, diarrhea Genitourinary: other (regular menses but heavy). denies: urgency, dysuria, discharge Musculoskeletal: denies: back pain, joint swelling, arthralgia Skin: denies: rash, lesions Neurological: denies: headache, weakness, paresthesias Psychiatric: denies: anxiety, depression Hematological/Lymphatic: denies: easy bleeding, easy bruising ED Past Medical Hx - Past Medical History Previous Medical History?: Yes Hx Hypertension: Yes Hx Heart Attack/AMI: Yes Hx Congestive Heart Failure: Yes (dx 3 years ago) Hx Diabetes: No Hx Asthma: No Hx COPD: No Hx HIV: No Additional medical history: anemia- states had a blood transfusion in 2013 - Surgical History Past Surgical History?: Yes Additional Surgical History: tubal ligation - Social History Smoking Status: Current Every Day Smoker Substance Use Type: Alcohol - Medications Home Medications: Home Medications Medication Instructions Recorded Confirmed Last Taken Type Carvedilol [Coreg] 6.25 mg PO BIDWM 11/03/18 11/03/18 Unknown History Furosemide [Lasix TAB] 40 mg PO QDAY 11/03/18 11/03/18 Unknown History Aspirin [Adult Aspirin] 81 mg PO DAILY 11/04/18 11/04/18 11/02/18 08:00 History AtorvaSTATin 20 mg PO DAILY 11/04/18 11/04/18 11/02/18 21:00 History Albuterol Sulfate [Proventil Hfa] 6.7 gm IH Q4H PRN #1 hfa.aer.ad 02/06/19 Unknown Rx Azithromycin [Zithromax Z-SHIRA] 250 mg PO DAILY #6 tab 02/06/19 Unknown Rx Ferrous Gluconate [Ferrous 324 mg PO TID #30 tablet 02/06/19 Unknown Rx Gluconate 324 MG] ED Physical Exam - General Limitations: No Limitations ED Course Vital Signs 02/06/19 07:48 Temperature 97.9 F Pulse Rate 94 H Respiratory 18 Rate Blood Pressure 158/87 O2 Sat by Pulse 98 Oximetry - Reevaluation(s) Reevaluation #1: Patient is remarkably well compensated with a hemoglobin of 7.4. She is not short of breath. She has not fatigued now. She has been noncompliant with her follow-up as well as iron. I have explained to her that she is getting close to the need for transfusion. She understands this. She understands the importance of follow-up. I have explained to her her hemoglobin will have to be checked next week. I've explained the return criteria for coming back to the emergency department. She seems stable enough for discharge at this time. 02/06/19 10:42 ED Medical Decision Making - Lab Data Result diagrams: 02/06/19 08:55 02/06/19 08:55 Laboratory Results - last 24 hr 02/06/19 02/06/19 02/06/19 08:55 08:55 08:55 WBC 5.5 RBC 3.84 Hgb 7.4 L Hct 24.5 L MCV 64 L MCH 19 L MCHC 30 RDW 20.6 H Plt Count 302 PT 13.2 INR 1.01 APTT TNR Sodium 139 Potassium 3.6 Chloride 100.7 Carbon Dioxide 24 Anion Gap 18 BUN 12 Creatinine 0.9 Estimated GFR > 60 BUN/Creatinine Ratio 13 Glucose 167 H Calcium 9.2 Magnesium 1.70 Total Bilirubin 0.20 Direct Bilirubin < 0.2 Indirect Bilirubin 0.0 AST 22 ALT 10 Alkaline Phosphatase 59 NT-Pro-B Natriuret Pep 318.8 Total Protein 7.6 Albumin 4.5 Albumin/Globulin Ratio 1.5 - EKG Data -: EKG Interpreted by Me EKG shows normal: sinus rhythm Rate: normal - EKG Data Interpretation: other (right bundle branch block and a repolarization abnormality) - Radiology Data Radiology results: report reviewed, image reviewed (chest x-ray no acute findings) Critical care attestation.: If time is entered above; I have spent that time in minutes in the direct care of this critically ill patient, excluding procedure time. ED Disposition Clinical Impression: Anemia due to chronic blood loss Acute bronchitis Qualifiers: Bronchitis organism: unspecified organism Qualified Code(s): J20.9 - Acute bronchitis, unspecified Cardiomyopathy Qualifiers: Cardiomyopathy type: unspecified Qualified Code(s): I42.9 - Cardiomyopathy, unspecified Disposition: DC- TO HOME OR SELFCARE Is pt being admited?: No Does the pt Need Aspirin: No Condition: Stable Instructions: Acute Bronchitis (ED) Additional Instructions: Begin iron replacement today. He must have your blood checked and monitored for improvement of your hemoglobin. If you are short of breath or very fatigued and she returned to this emergency department and transfusion will be likely needed. You need follow-up in general for your medical problems, [employer] follow-up for your fibroids and heavy periods as well. Keep your appointment with the state attorney. Blood work to show the state attorney for repeat especially if this is not done prior. It is recommended that you have your blood count repeated within the next 3-[address] Zelaya is an [employer] physician. Prescriptions: Ferrous Gluconate [Ferrous Gluconate 324 MG] 324 mg PO TID #30 tablet Albuterol Sulfate [Proventil Hfa] 6.7 gm IH Q4H PRN #1 hfa.aer.ad PRN Reason: Wheezing Azithromycin [Zithromax Z-SHIRA] 250 mg PO DAILY #6 tab Referrals: PRIMARY CAREMD [Primary Care Provider] - 3-5 Days DWAIN ZELAYA MD [Staff Physician] - 3-5 Days [facility] [Provider Group] - 2-3 Days Time of Disposition: 10:46
[2019-02-06] MEDS ORDERED: IPRATROPIUM/ALBUTEROL SULFATE 3 ML AMPUL.NEB IH ONE (08:31)
[2019-02-06 09:19] LABS: Hematocrit 24.5 % (30.3-42.9); Hemoglobin 7.4 gm/dl (10.1-14.3); Mean Corpuscular HGB Conc 30 % (30-34); Platelet Count 302 K/mm3 (140-440); Red Blood Count 3.84 M/mm3 (3.65-5.03)
[2019-02-06 09:23] LABS: Mean Corpuscular Volume 64 fl (79-97); Red Cell Distribution Width 20.6 % (13.2-15.2)
[2019-02-06 09:25] LABS: INR 1.01 (0.87-1.13)
--- NOTE | 2019-02-06 09:33 | XRay Report ---
CHEST 2 VIEWS INDICATION: ANTONIO. COMPARISON: 11/03/2018 FINDINGS: Support devices: None. Heart: Within normal limits. Pulmonary vasculature: Abnormal. Lungs/pleura: No acute air space or interstitial disease. No pneumothorax. Additional findings: None. IMPRESSION: 1. No acute findings. Signer Name: Dennis David MD Signed: 02/06/2019 9:29 AM Workstation Name: [id number]
[2019-02-06 09:43] LABS: Alanine Aminotransferase 10 units/L (7-56); Albumin 4.5 g/dL (3.9-5); BUN/Creatinine Ratio 13; Blood Urea Nitrogen 12 mg/dL (7-17); Calcium 9.2 mg/dL (8.4-10.2); Hemolysis Index 1
[2019-02-06 09:56] LABS: Bilirubin,Direct < 0.2 mg/dL (0-0.2); Partial Thromboplastin Time TNR Sec. (24.2-36.6)
[2019-02-06 10:49] LABS: Partial Thromboplastin Time 28.3 Sec. (24.2-36.6)
[2019-02-06 10:50] LABS: INR 3.43 (0.87-1.13)
[2019-02-06 10:59] LABS: Total Cells Counted 100
[2019-02-06 11:01] LABS: Anisocytosis 2+
[2019-02-06 11:02] LABS: Hypochromasia 2+; Poikilocytosis 1+
[2019-02-06 11:03] LABS: Helmet Cells Rare; Large Platelets Few; Ovalocytes Few; Platelet Estimate Cons; Tear Drop Cells Rare
[2019-02-06 11:12] VITALS: BP 150/90
== END 2019-02-06 11:18 | disposition home or self-care (01) ==
LOC: ED 07:44
DX: D50.0 Iron deficiency anemia secondary to blood loss (chronic) (principal); J20.9 Acute bronchitis, unspecified; I42.9 Cardiomyopathy, unspecified; I11.0 Hypertensive heart disease with heart failure; I50.9 Heart failure, unspecified; I25.2 Old myocardial infarction; F17.200 Nicotine dependence, unspecified, uncomplicated; Z98.51 Tubal ligation status; Z79.899 Other long term (current) drug therapy; Z88.8 Allergy status to other drugs, medicaments and biological substances
CPT/HCPCS: 36415; 71046; 80048; 80076; 83735; 83880; 85007; 85025; 85610; 85730; 93005; 93010; 94640

== ENCOUNTER 2019-03-12 06:26 | Observation (INO) | payer SELFPAY ==
--- NOTE | 2019-03-12 08:54 | XRay Report ---
CHEST 1 VIEW INDICATION: sob, dizzy, chf hx. COMPARISON: 02/06/2019 FINDINGS: Support devices: None. Heart: Heart size appears borderline Lungs/Pleura: No acute air space or interstitial disease. No pleural fluid or pneumothorax. Additional findings: None. IMPRESSION: Borderline heart size. Lungs clear. Signer Name: Lc Cartwright Jr, MD Signed: 03/12/2019 8:50 AM Workstation Name: [id number]
[2019-03-12 09:23] LABS: Hematocrit 22.9 % (30.3-42.9); Hemoglobin 6.8 gm/dl (10.1-14.3); Mean Corpuscular HGB Conc 30 % (30-34); Platelet Count 355 K/mm3 (140-440); Red Blood Count 3.64 M/mm3 (3.65-5.03)
[2019-03-12 09:24] LABS: Mean Corpuscular Volume 63 fl (79-97); Red Cell Distribution Width 21.7 % (13.2-15.2)
[2019-03-12 09:26] LABS: INR 1.05 (0.87-1.13); Partial Thromboplastin Time 26.9 Sec. (24.2-36.6)
[2019-03-12 09:39] LABS: BUN/Creatinine Ratio 13; Blood Urea Nitrogen 8 mg/dL (7-17); Calcium 9.1 mg/dL (8.4-10.2); Hemolysis Index 0
[2019-03-12] MEDS ORDERED: POTASSIUM CHLORIDE ER 20 MEQ TAB PO ONE ×2 (09:50→11:12)
[2019-03-12] MEDS ORDERED: SODIUM CHLORIDE 0.9% 500 ML 500 ML IV ONE (09:50)
--- NOTE | 2019-03-12 09:56 | Emergency Department Report ---
ED Shortness of Breath HPI - General Chief Complaint: Dizziness Stated Complaint: DIZZY,SOB,FATIGUE,NUMB TOUNGE Time Seen by Provider: 03/12/19 08:22 Source: patient Mode of arrival: Ambulatory Limitations: No Limitations - History of Present Illness Initial Comments: 48 year old female the past medical history of iron deficiency anemia, uterine fibroids with menorrhagia, and cardiomyopathy with the EF of 35-40% presents to the hospital complaining of dyspnea on exertion, generalized fatigue, and lightheadedness for the past 3 days. Symptoms symptoms in the past with symptomatic anemia requiring blood transfusion. Patient was last admitted here 11/2018 with hgb 5.6 requiring 3 Units PRBC. Patient also has a history of left atrial clot but not currently on anticoagulation. She completed her menstrual cycle approximately 4 days ago. Her menstrual cycle last 7-9 days and she uses 3 pads or pads and depends diapers at the same time due to menorrhagia. Patient presented here in the ED in February and had a hgb of 7.4 at that time. Pt alisha carroll OTC iron tablets daily. No PMD follow up. - Related Data Home Medications Medication Instructions Recorded Confirmed Last Taken Furosemide [Lasix TAB] 40 mg PO QDAY 11/03/18 11/03/18 Unknown carvediloL [Coreg] 6.25 mg PO BIDWM 11/03/18 11/03/18 Unknown Aspirin [Adult Aspirin] 81 mg PO DAILY 11/04/18 11/04/18 11/02/18 08:00 AtorvaSTATin 20 mg PO DAILY 11/04/18 11/04/18 11/02/18 21:00 Previous Rx's Medication Instructions Recorded Last Taken Type Albuterol Sulfate [Proventil Hfa] 6.7 gm IH Q4H PRN #1 hfa.aer.ad 02/06/19 Unknown Rx Azithromycin [Zithromax Z-SHIRA] 250 mg PO DAILY #6 tab 02/06/19 Unknown Rx Ferrous Gluconate [Ferrous 324 mg PO TID #30 tablet 02/06/19 Unknown Rx Gluconate 324 MG] Allergies Allergy/AdvReac Type Severity Reaction Status Date / Time lisinopril AdvReac Angioedema Verified 11/05/18 12:21 ED Review of Systems ROS: Stated complaint: DIZZY,SOB,FATIGUE,NUMB TOUNGE Other details as noted in HPI Comment: All other systems reviewed and negative ED Past Medical Hx - Past Medical History Previous Medical History?: Yes Hx Hypertension: Yes Hx Heart Attack/AMI: Yes Hx Congestive Heart Failure: Yes (dx 3 years ago) Hx Diabetes: No Hx Asthma: No Hx COPD: No Hx HIV: No Additional medical history: anemia. Left atrial clot - Surgical History Past Surgical History?: Yes Additional Surgical History: tubal ligation - Social History Smoking Status: Current Every Day Smoker Substance Use Type: None - Medications Home Medications: Home Medications Medication Instructions Recorded Confirmed Last Taken Type Furosemide [Lasix TAB] 40 mg PO QDAY 11/03/18 11/03/18 Unknown History carvediloL [Coreg] 6.25 mg PO BIDWM 11/03/18 11/03/18 Unknown History Aspirin [Adult Aspirin] 81 mg PO DAILY 11/04/18 11/04/18 11/02/18 08:00 History AtorvaSTATin 20 mg PO DAILY 11/04/18 11/04/18 11/02/18 21:00 History Albuterol Sulfate [Proventil Hfa] 6.7 gm IH Q4H PRN #1 hfa.aer.ad 02/06/19 Unknown Rx Azithromycin [Zithromax Z-SHIRA] 250 mg PO DAILY #6 tab 02/06/19 Unknown Rx Ferrous Gluconate [Ferrous 324 mg PO TID #30 tablet 02/06/19 Unknown Rx Gluconate 324 MG] ED Physical Exam - General Limitations: No Limitations - Other Other exam information: General: No acute distress Head: Atraumatic Eyes: normal appearance ENT: Moist mucous membranes Neck: Normal appearance, no midline tenderness Chest: Clear to auscultation bilaterally CV: Regular rate and rhythm Abdomen: Soft, normal bowel sounds, nontender, nondistended, no rebound or guarding Back: Normal inspection Extremity: Normal inspection infection, full range of motion Neuro: Alert O x 3, no facial asymmetry, speech clear, no gross motor sensory deficit Psych: Appropriate behavior Skin: No rash ED Course Vital Signs 03/12/19 03/12/19 03/12/19 06:30 07:58 08:01 Temperature 98.4 F Pulse Rate 88 90 92 H Respiratory 18 16 17 Rate Blood Pressure 165/93 O2 Sat by Pulse 100 100 Oximetry 03/12/19 03/12/19 03/12/19 08:12 08:15 08:30 Temperature Pulse Rate 87 88 Respiratory 18 18 17 Rate Blood Pressure 144/77 159/91 O2 Sat by Pulse 100 100 100 Oximetry 03/12/19 03/12/19 03/12/19 08:45 09:00 09:15 Temperature Pulse Rate 88 88 90 Respiratory 15 18 16 Rate Blood Pressure 159/91 150/83 149/81 O2 Sat by Pulse 100 Oximetry 03/12/19 12 09:30 09:45 Temperature Pulse Rate 92 H 87 Respiratory 15 16 Rate Blood Pressure 152/84 162/85 O2 Sat by Pulse 100 100 Oximetry ED Medical Decision Making - Lab Data Result diagrams: 03/12/19 08:28 03/12/19 08:28 Lab Results 03/12/19 03/12/19 03/12/19 Range/Units 08:28 08:28 08:28 WBC 4.8 (4.5-11.0) K/mm3 RBC 3.64 L (3.65-5.03) M/mm3 Hgb 6.8 L (10.1-14.3) gm/dl Hct 22.9 L (30.3-42.9) % MCV 63 L (79-97) fl MCH 19 L (28-32) pg MCHC 30 (30-34) % RDW 21.7 H (13.2-15.2) % Plt Count 355 (140-440) K/mm3 Lymph % (Auto) [employer] Supervisor [place] % (Auto) [employer] Supervisor Eos % (Auto) [employer] Supervisor Baso % (Auto) [employer] Supervisor Lymph # [employer] Supervisor [place] # [employer] Supervisor Eos # [employer] Supervisor Baso # [employer] Supervisor Seg Neutrophils % [employer] Supervisor Seg Neutrophils # [employer] Supervisor PT 13.6 (12.2-14.9) Sec. INR 1.05 (0.87-1.13) APTT 26.9 (24.2-36.6) Sec. Sodium 137 (137-145) mmol/L Potassium 3.4 L (3.6-5.0) mmol/L Chloride 100.8 (98-107) mmol/L Carbon Dioxide 23 (22-30) mmol/L Anion Gap 17 mmol/L BUN 8 (7-17) mg/dL Creatinine 0.6 L (0.7-1.2) mg/dL Estimated GFR > 60 ml/min BUN/Creatinine Ratio 13 % Glucose 101 H (65-100) mg/dL Calcium 9.1 (8.4-10.2) mg/dL Troponin T (0.00-0.029) ng/mL NT-Pro-B Natriuret Pep 650.0 H (0-450) pg/mL HCG, Qual (Negative) Blood Type Antibody Screen Crossmatch 03/12/19 03/12/19 03/12/19 Range/Units 08:28 08:33 08:36 WBC (4.5-11.0) K/mm3 RBC (3.65-5.03) M/mm3 Hgb (10.1-14.3) gm/dl Hct (30.3-42.9) % MCV (79-97) fl MCH (28-32) pg MCHC (30-34) % RDW (13.2-15.2) % Plt Count (140-440) K/mm3 Lymph % (Auto) [place] % (Auto) Eos % (Auto) Baso % (Auto) Lymph # [place] # Eos # Baso # Seg Neutrophils % Seg Neutrophils # PT (12.2-14.9) Sec. INR (0.87-1.13) APTT (24.2-36.6) Sec. Sodium (137-145) mmol/L Potassium (3.6-5.0) mmol/L Chloride (98-107) mmol/L Carbon Dioxide (22-30) mmol/L Anion Gap mmol/L BUN (7-17) mg/dL Creatinine (0.7-1.2) mg/dL Estimated GFR ml/min BUN/Creatinine Ratio % Glucose (65-100) mg/dL Calcium (8.4-10.2) mg/dL Troponin T < 0.010 (0.00-0.029) ng/mL NT-Pro-B Natriuret Pep (0-450) pg/mL HCG, Qual Negative (Negative) Blood Type B POSITIVE Antibody Screen Negative Crossmatch See Detail - EKG Data -: EKG Interpreted by Me (RBBB ) EKG shows normal: sinus rhythm, ST-T waves Rate: normal (91) - Radiology Data Radiology results: report reviewed CHEST 1 VIEW INDICATION: sob, dizzy, chf hx. COMPARISON: 02/06/2019 FINDINGS: Support devices: None. Heart: Heart size appears borderline Lungs/Pleura: No acute air space or interstitial disease. No pleural fluid or pneumothorax. Additional findings: None. IMPRESSION: Borderline heart size. Lungs clear - Medical Decision Making given chf hx and symptomatic anemia pt will be admitted for transfusion 1 unit ordered in ed additional units to be determined by admitting ed hospitalist informed - Differential Diagnosis chf, anemia Critical Care Time: No Critical care attestation.: If time is entered above; I have spent that time in minutes in the direct care of this critically ill patient, excluding procedure time. ED Disposition Clinical Impression: Symptomatic anemia, Cardiomyopathy, Hypokalemia Disposition: 09 OP ADMIT IP TO THIS HOSP Is pt being admited?: Yes Condition: Stable Time of Disposition: 09:54 (Dr Howard)
[2019-03-12 10:18] LABS: Total Cells Counted 100
[2019-03-12 10:19] LABS: Anisocytosis 1+; Basophils % (Manual) 0 % (0.0-1.8); Eosinophils % (Manual) 0 % (0.0-4.3); Hypochromasia 2+; Ovalocytes Few; Tear Drop Cells Rare
[2019-03-12 10:20] LABS: Helmet Cells Few; Platelet Estimate Consistent w Auto
[2019-03-12] MEDS ORDERED: SODIUM CHLORIDE 0.9% 500 ML 500 ML ONE (11:12)
--- NOTE | 2019-03-12 11:28 | History and Physical Report ---
History of Present Illness Date of examination: 03/12/19 Date of admission: 03/12/19 09:56 Chief complaint: Shortness of breath,weakness and dizzy ness History of present illness: 48 year old female the past medical history of iron deficiency anemia, uterine fibroids with menorrhagia, and cardiomyopathy with the EF of 35-40% presents to the hospital complaining of dyspnea on exertion, generalized fatigue, and lightheadedness for the past 3 days. Symptoms symptoms in the past with symptomatic anemia requiring blood transfusion. Patient was last admitted here 11/2018 with hgb 5.6 requiring 3 Units PRBC. Patient also has a history of left atrial clot but not currently on anticoagulation. She completed her menstrual cycle approximately 4 days ago. Her menstrual cycle last 7-9 days and she uses 3 pads or pads and depends diapers at the same time due to menorrhagia. Patient presented here in the ED in February and had a hgb of 7.4 at that time. Pt taking OTC iron tablets daily. No PMD follow up. Past History Past Medical History: heart failure, hypertension, other (fibroid uterus, menorrhagia) Past Surgical History: Other (ligation) Social history: lives with family, smoking, alcohol abuse Family history: diabetes, hypertension Medications and Allergies Allergies Allergy/AdvReac Type Severity Reaction Status Date / Time lisinopril AdvReac Angioedema Verified 11/05/18 12:21 Home Medications Medication Instructions Recorded Confirmed Last Taken Type Albuterol Sulfate [Proventil Hfa] 6.7 gm IH Q4H PRN #1 hfa.aer.ad 03/12/19 Unknown Rx Aspirin [Adult Aspirin] 81 mg PO DAILY #30 03/12/19 Unknown Rx AtorvaSTATin 20 mg PO DAILY #30 03/12/19 Unknown Rx Ferrous Gluconate [Ferrous 324 mg PO BID #60 tablet 03/12/19 Unknown Rx Gluconate 324 MG] Furosemide [Lasix TAB] 40 mg PO QDAY #30 03/12/19 Unknown Rx carvediloL [Coreg] 6.25 mg PO BIDWM #60 03/12/19 Unknown Rx Review of Systems Constitutional: fatigue, weakness, no weight loss, no weight gain, no anorexia Ears, nose, mouth and throat: no nasal congestion, no nasal discharge Cardiovascular: no chest pain, no orthopnea, no palpitations Respiratory: no cough, no shortness of breath Gastrointestinal: no abdominal pain, no nausea, no vomiting Genitourinary Female: no dysuria, no hematuria Musculoskeletal: no myalgias, no arthritis Integumentary: no rash, no lesions Neurological: no weakness, no parathesias Psychiatric: no anxiety, no depression Endocrine: no cold intolerance, no heat intolerance Hematologic/Lymphatic: no easy bruising, no easy bleeding Allergic/Immunologic: no urticaria, no allergic rhinitis Exam - Constitutional Vitals: Temp Pulse Resp BP Pulse Ox 98.3 F 84 17 153/96 100 03/12/19 11:23 03/12/19 11:23 03/12/19 11:23 03/12/19 11:23 03/12/19 11:23 General appearance: Present: no acute distress, well-nourished - EENT Eyes: Present: PERRL, EOM intact - Neck Neck: Present: supple, normal ROM - Respiratory Respiratory effort: normal Respiratory: bilateral: diminished, negative: rales, rhonchi, wheezing - Cardiovascular Rhythm: regular Heart Sounds: Present: S1 & S2 - Extremities Extremities: no ischemia, No edema - Abdominal General gastrointestinal: Present: soft, non-tender, non-distended, normal bowel sounds - Integumentary Integumentary: Present: clear, warm - Musculoskeletal Musculoskeletal: strength equal bilaterally - Psychiatric Psychiatric: appropriate mood/affect - Neurologic Neurologic: CNII-XII intact, moves all extremities Results - Labs CBC & Chem 7: 03/12/19 19:58 03/12/19 08:28 Labs: Abnormal lab results 03/12/19 03/12/19 03/12/19 Range/Units 08:28 08:28 08:33 RBC 3.64 L (3.65-5.03) M/mm3 Hgb 6.8 L (10.1-14.3) gm/dl Hct 22.9 L (30.3-42.9) % MCV 63 L (79-97) fl MCH 19 L (28-32) pg RDW 21.7 H (13.2-15.2) % Seg Neuts % (Manual) 94.0 H (40.0-70.0) % Lymphocytes % (Manual) 2.0 L (13.4-35.0) % Lymphocytes # (Manual) 0.1 L (1.2-5.4) K/mm3 Potassium 3.4 L (3.6-5.0) mmol/L Creatinine 0.6 L (0.7-1.2) mg/dL Glucose 101 H (65-100) mg/dL NT-Pro-B Natriuret Pep 650.0 H (0-450) pg/mL Crossmatch See Detail Assessment and Plan --Symptomatic anemia; Secondary to menorrhagia Type and cross and transfuse 1 unit of PRBC Supportive care --Chronic systolic CHF; ejection fraction 30-35% Continue heart failure medications Diuretics, beta blockers, and Protopic monitoring The patient is allergic to lisinopril --Fibroid Ut/Menorrhagia; Advised to see AEMT for further evaluation and management,Upon discharge --Obesity : BMI 30; Advised weight reduction when medically stable --DVT prophylaxis;SCDs, no pharmacologic anticoagulation in view of severe anemia Follow-up post transfusion H&H and if stable Possible discharge home today Plan of care the patient and her nurse
[2019-03-12] MEDS ORDERED: ALBUTEROL 8.5 GM INHALATION IH PRN (11:33)
[2019-03-12] MEDS ORDERED: ALBUTEROL 2.5 MG/3 ML NEBU IH PRN (11:43)
[2019-03-12] MEDS ORDERED: FUROSEMIDE 40 MG TAB PO SCH (12:00)
[2019-03-12] MEDS ORDERED: ASPIRIN EC 81 MG TAB PO SCH (12:00)
[2019-03-12] MEDS ORDERED: FERROUS GLUCONATE 324 MG TAB PO SCH (14:00)
--- NOTE | 2019-03-12 15:37 | Discharge Summary ---
Providers - Providers Date of Admission: 03/12/19 09:56 Date of discharge: 03/12/19 Attending physician: EVANGELINA PENA [facility] Reason for admission: symptomatic anemia Condition: Stable Pertinent studies: 1 unit PRBC transfusion Hospital course: 48 year old female the past medical history of iron deficiency anemia, uterine fibroids with menorrhagia, and cardiomyopathy with the EF of 35-40% presents to the hospital complaining of dyspnea on exertion, generalized fatigue, and lightheadedness for the past 3 days. Symptoms symptoms in the past with symptomatic anemia requiring blood transfusion. Patient was last admitted here 11/2018 with hgb 5.6 requiring 3 Units PRBC. Patient also has a history of left atrial clot but not currently on anticoagulation. She completed her menstrual cycle approximately 4 days ago. Her menstrual cycle last 7-9 days and she uses 3 pads or pads and depends diapers at the same time due to menorrhagia. Patient presented here in the ED in February and had a hgb of 7.4 at that time. Pt taking OTC iron tablets daily. No PMD follow up. Patient received blood transfusion ,patient is comfortable ,no new complaints vital signs stable. Physical examination prior to discharge is unremarkable Advised to see WIRED SWEATBAND CUTTER, primary care physician and grocery deliverer was scheduled Discharge Diagnosis: --Symptomatic anemia; Secondary to menorrhagia Type and cross and transfuse 1 unit of PRBC Supportive care --Chronic systolic CHF; ejection fraction 30-35% Continue heart failure medications Diuretics, beta blockers, and Protopic monitoring The patient is allergic to lisinopril --Fibroid Ut/Menorrhagia; Advised to see WELDING OPERATOR for further evaluation and management,Upon discharge --Obesity : BMI 30; Advised weight reduction when medically stable --DVT prophylaxis;SCDs, no pharmacologic anticoagulation in view of severe anemia Follow-up post transfusion H&H and if stable Possible discharge home today Disposition: DC-01 TO HOME OR SELFCARE Time spent for discharge: 32 min Core Measure Documentation - Palliative Care Palliative Care/ Comfort Measures: Not Applicable - Core Measures Any of the following diagnoses?: none Exam - Constitutional Vitals: Temp Pulse Resp BP Pulse Ox 98 F 78 14 153/85 100 03/12/19 11:38 03/12/19 11:38 03/12/19 11:38 03/12/19 11:38 03/12/19 11:38 General appearance: Present: no acute distress, well-nourished - EENT Eyes: Present: PERRL, EOM intact - Neck Neck: Present: supple, normal ROM - Respiratory Respiratory effort: normal Respiratory: bilateral: diminished, rales, negative: rhonchi, wheezing - Cardiovascular Rhythm: regular Heart Sounds: Present: S1 & S2 - Extremities Extremities: no ischemia, No edema - Abdominal General gastrointestinal: Present: soft, non-tender, non-distended, normal bowel sounds - Integumentary Integumentary: Present: clear, warm - Musculoskeletal Musculoskeletal: strength equal bilaterally - Psychiatric Psychiatric: appropriate mood/affect, cooperative - Neurologic Neurologic: CNII-XII intact, moves all extremities Plan Activity: advance as tolerated Diet: other (cardiac diet) Additional Instructions: Advised to see private WIRED SWEATBAND CUTTER in 1-2 weeks [facility] [place] [Primary Care Provider] - 7 Days RACHELLE ROMO MD [Staff Physician] - 7 Days Prescriptions: Aspirin [Adult Aspirin] 81 mg PO DAILY #30 AtorvaSTATin 20 mg PO DAILY #30 carvediloL [Coreg] 6.25 mg PO BIDWM #60 Ferrous Gluconate [Ferrous Gluconate 324 MG] 324 mg PO BID #60 tablet Furosemide [Lasix TAB] 40 mg PO QDAY #30 Albuterol Sulfate [Proventil Hfa] 6.7 gm IH Q4H PRN #1 hfa.aer.ad PRN Reason: Wheezing
[2019-03-12 16:55] VITALS: BP 149/79
[2019-03-12] MEDS ORDERED: carvediloL 6.25 MG TAB PO SCH (17:00)
[2019-03-12 20:20] LABS: Hematocrit 26.2 % (30.3-42.9); Hemoglobin 7.8 gm/dl (10.1-14.3)
[2019-03-13] MEDS ORDERED: NON-FORMULARY EACH (Atorvastatin 20 MG) PO SCH (10:00)
[2019-03-13] MEDS ORDERED: LISINOPRIL 10 MG TAB PO SCH (10:00)
== END 2019-03-12 21:30 | disposition home or self-care (01) ==
LOC: ED 06:26 → 3A 09:56
PROVIDERS: ADMIT Internal Medicine; ATTEND Internal Medicine
DX: D64.9 Anemia, unspecified (principal); I11.0 Hypertensive heart disease with heart failure; I50.9 Heart failure, unspecified; I42.9 Cardiomyopathy, unspecified; E87.6 Hypokalemia; D25.9 Leiomyoma of uterus, unspecified; E66.9 Obesity, unspecified; R42 Dizziness and giddiness; F17.200 Nicotine dependence, unspecified, uncomplicated; Z68.30 Body mass index [BMI] 30.0-30.9, adult; Z98.51 Tubal ligation status; Z79.82 Long term (current) use of aspirin
CPT/HCPCS: 36415; 36430; 71045; 80048; 83880; 84484; 84703; 85007; 85014; 85018; 85025; 85610; 85730; 86850; 86900; 86901; 86920; 93005; 93010; 99284; G0378; J7040; P9016

== ENCOUNTER 2021-01-29 23:37 | Observation (INO) | payer SELFPAY ==
[2021-01-30] MEDS ORDERED: NITROGLYCERIN 2% OINT 1 GM TP ONE (00:40)
[2021-01-30] MEDS ORDERED: ASPIRIN 325 MG TAB PO ONE (00:41)
--- NOTE | 2021-01-30 00:47 | Emergency Department Report ---
HPI - General Chief Complaint: Chest Pain Time Seen by Provider: 01/30/21 00:29 - HPI HPI: Room 18 Patient is a 50-year-old female present with a chief complaint of chest pain. Patient states her symptoms began at approximately 1830 while at rest. Patient states she developed left-sided chest pain is been throbbing and aching in nature. Patient states the pain has been associated with shortness of breath and diaphoresis patient denies nausea/vomiting. Patient also admits to an occasional cough for the past 2 weeks that is nonproductive. Patient denies history of fever. Patient denies pleurisy but admits to a recent drive to [place] last week. The patient states she was told she had a TX in the past and her last cardiac catheterization occurred in 2018 ED Past Medical Hx - Past Medical History Hx Hypertension: Yes Hx Heart Attack/AMI: Yes Hx Congestive Heart Failure: Yes Additional medical history: anemia. Left atrial clot - Surgical History Past Surgical History?: No Additional Surgical History: tubal ligation - Family History Family history: no significant - Social History Smoking Status: Current Every Day Smoker (2/3 pack/day) Substance Use Type: None (Denies illicit drug use), Alcohol (Frequently) - Medications Home Medications: Home Medications Medication Instructions Recorded Confirmed Last Taken Type Albuterol Sulfate [Proventil Hfa] 6.7 gm IH Q4H PRN #1 hfa.aer.ad 03/12/19 01/30/21 01/13/21 Rx Aspirin [Adult Aspirin] 81 mg PO DAILY #30 03/12/19 01/30/21 1 Day Ago Rx ~01/29/21 AtorvaSTATin 20 mg PO DAILY #30 03/12/19 01/30/21 1 Day Ago Rx ~01/29/21 Ferrous Gluconate [Ferrous 324 mg PO BID #60 tablet 03/12/19 01/30/21 1 Day Ago Rx Gluconate 324 MG] ~01/29/21 Furosemide [Lasix TAB] 40 mg PO QDAY #30 03/12/19 01/30/21 1 Day Ago Rx ~01/29/21 carvediloL [Coreg] 6.25 mg PO BIDWM #60 03/12/19 01/30/21 1 Day Ago Rx ~01/29/21 Aspirin EC [Halfprin EC] 81 mg PO QDAY tablet 01/30/21 Unknown Rx AtorvaSTATin [Lipitor] 20 mg PO QHS tablet 01/30/21 Unknown Rx ED Review of Systems ROS: Stated complaint: CHEST PAIN Other details as noted in HPI Constitutional: denies: diaphoresis Eyes: denies: eye pain ENT: denies: throat pain Respiratory: cough, shortness of breath Cardiovascular: chest pain Endocrine: no symptoms reported Gastrointestinal: denies: nausea, vomiting Genitourinary: denies: dysuria Musculoskeletal: denies: back pain Neurological: denies: headache Physical Exam - Physical Exam Vital Signs: Vital Signs 01/29/21 23:54 O2 Sat by Pulse 100 Oximetry Physical Exam: GENERAL: The patient is well-developed well-nourished female lying on stretcher not appearing to be in acute distress. [] HEENT: Normocephalic. Atraumatic. Extraocular motions are intact. Patient has moist mucous membranes. NECK: Supple. Trachea midline CHEST/LUNGS: Clear to auscultation. There is no respiratory distress noted. HEART/CARDIOVASCULAR: Regular. There is no tachycardia. There is no gallop rub or murmur. ABDOMEN: Abdomen is soft, nontender. Patient has normal bowel sounds. There is no abdominal distention. SKIN: There is no rash. There is no edema. There is no diaphoresis. NEURO: The patient is awake, alert, and oriented. The patient is cooperative. The patient has no focal neurologic deficits. The patient has normal speech. GCS 15 MUSCULOSKELETAL: There is no tenderness to palpation of the calves bilaterally. There is no evidence of acute injury. ED Course Vital Signs 01/29/21 23:54 O2 Sat by Pulse 100 Oximetry ED Medical Decision Making - Lab Data Result diagrams: 01/30/21 04:20 01/30/21 04:20 - EKG Data -: EKG Interpreted by Me EKG shows normal: sinus rhythm Rate: normal - EKG Data When compared to previous EKG there are: no significant change Interpretation: unchanged when compared t (03/12/2019) - Differential Diagnosis ACS, PE, pericarditis, GERD, anxiety Critical care attestation.: If time is entered above; I have spent that time in minutes in the direct care of this critically ill patient, excluding procedure time. ED Disposition Clinical Impression: Chest pain Disposition: 09 ADMITTED INPATIENT Is pt being admited?: Yes Does the pt Need Aspirin: Yes Condition: Fair Heart Score - HEART Score History: Moderately suspicious EKG: Non-specific Age: 45-65 Risk factors: 1-2 risk factors Troponin: < normal limit HEART Score: 4 - EKG Read Time Time EKG Completed: 00:07 EKG Read Time: 00:15
[2021-01-30 01:51] LABS: Mean Corpuscular HGB Conc 29 % (30-34); Platelet Count 273 K/mm3 (140-440); Red Blood Count 4.07 M/mm3 (3.65-5.03)
[2021-01-30 01:53] LABS: Hematocrit 27.1 % (30.3-42.9); Hemoglobin 7.8 gm/dl (10.1-14.3); Mean Corpuscular Volume 67 fl (79-97); Red Cell Distribution Width 20.9 % (13.2-15.2)
[2021-01-30 02:11] LABS: Creatine Kinase MB 1.6 ng/mL (0.0-4.0)
[2021-01-30 02:12] LABS: BUN/Creatinine Ratio 8; Blood Urea Nitrogen 6 mg/dL (7-17); Calcium 9.5 mg/dL (8.4-10.2); Hemolysis Index 0
[2021-01-30 03:43] LABS: Total Cells Counted 100
[2021-01-30 03:44] LABS: Anisocytosis 1+; Hypochromasia 2+
[2021-01-30 04:00] LABS: Ovalocytes Few; Platelet Estimate Consistent w Auto
--- NOTE | 2021-01-30 04:07 | XRay Report ---
CHEST 1 VIEW 01/30/2021 2:58 AM INDICATION / CLINICAL INFORMATION: cp. COMPARISON: 03/12/2019 FINDINGS: SUPPORT DEVICES: None. HEART / MEDIASTINUM: No significant abnormality. LUNGS / PLEURA: Mild interstitial prominence within the perihilar regions and lower lungs have no foc al consolidation No pneumothorax. Signer Name: Tobin Blanco MD Signed: 01/30/2021 4:02 AM Workstation Name: [id number]
[2021-01-30] MEDS ORDERED: MAGNESIUM HYDROXIDE (MOM) ORAL LIQD UDC PO PRN (04:10)
[2021-01-30] MEDS ORDERED: ONDANSETRON 4 MG/2 ML INJ IV PRN (04:10)
[2021-01-30] MEDS ORDERED: NITROGLYCERIN 0.4 MG TAB SUBL SL PRN (04:10)
[2021-01-30] MEDS ORDERED: MORPHINE 2 MG/1 ML INJ IV PRN (04:10)
[2021-01-30] MEDS ORDERED: ACETAMINOPHEN 325 MG TAB PO PRN ×2 (04:10)
[2021-01-30] MEDS ORDERED: traMADol 50 MG TAB PO PRN (04:10)
[2021-01-30] MEDS ORDERED: MORPHINE 4 MG/1 ML INJ IV PRN (04:10)
[2021-01-30 04:52] LABS: Mean Corpuscular HGB Conc 29 % (30-34); Platelet Count 262 K/mm3 (140-440); Red Blood Count 4.09 M/mm3 (3.65-5.03)
[2021-01-30 04:56] LABS: Hematocrit 27.1 % (30.3-42.9); Hemoglobin 7.8 gm/dl (10.1-14.3); Mean Corpuscular Volume 66 fl (79-97); Red Cell Distribution Width 20.8 % (13.2-15.2)
[2021-01-30 05:02] LABS: Blood Urea Nitrogen 5 mg/dL (7-17); Calcium 9.3 mg/dL (8.4-10.2); Hemolysis Index 1
[2021-01-30 05:03] LABS: BUN/Creatinine Ratio 7
--- NOTE | 2021-01-30 05:10 | History and Physical Report ---
History of Present Illness Date of examination: 01/30/21 Date of admission: 01/30/2021 Chief complaint: Chest pain History of present illness: 50-year-old female with known history of hypertension, CHF, history of coronary artery disease with ID in the past presents to the emergency room today complaining of chest pain. Chest pain was said to have started while sleeping and was suddenly woken up with a left-sided chest pain. She had associated diaphoresis and shortness of breath. She denies any nausea vomiting, no abdominal pain. She indicates she has had occasional cough over the past 2 weeks which is nonproductive. She denies any fever or chills, denies any sick contacts but recently returned from a trip to [place] about a week ago. Patient has not been fully vaccinated against COVID-19. Work-up in the emergency room today, chest x-ray reveals mild interstitial prominence within the perihilar regions and lower lungs with no focal consolidat ion or or pneumothorax. Labs reveal a BNP of 620. EKG and troponin were negative. Past History Past Medical History: acute ID, anemia, heart failure, hypertension, hyperlipidemia Past Surgical History: Other (Tubal ligation) Social history: smoking (Current daily smoker), alcohol abuse (Drinks alcohol quite frequently) Family history: no significant family history Medications and Allergies Allergies Allergy/AdvReac Type Severity Reaction Status Date / Time lisinopril AdvReac Angioedema Verified 11/05/18 12:21 Home Medications Medication Instructions Recorded Confirmed Last Taken Type Albuterol Sulfate [Proventil Hfa] 6.7 gm IH Q4H PRN #1 [id number].[id number] 03/12/19 Unknown Rx Aspirin [Adult Aspirin] 81 mg PO DAILY #30 03/12/19 Unknown Rx AtorvaSTATin 20 mg PO DAILY #30 03/12/19 Unknown Rx Ferrous Gluconate [Ferrous 324 mg PO BID #60 tablet 03/12/19 Unknown Rx Gluconate 324 MG] Furosemide [Lasix TAB] 40 mg PO QDAY #30 03/12/19 Unknown Rx carvediloL [Coreg] 6.25 mg PO BIDWM #60 03/12/19 Unknown Rx Active Meds: Active Medications Acetaminophen (Acetaminophen 325 Mg Tab) 650 mg PO Q4H PRN PRN Reason: Pain MILD(1-3)/Fever >100.5/[place] Aspirin (Aspirin Ec 325 Mg Tab) 325 mg PO QDAY [facility] Heparin Sodium (Porcine) (Heparin 5,000 Unit/1 Ml Vial) 5,000 unit SUB-Q Q8HR [facility] Magnesium Hydroxide (Magnesium Hydroxide (Mom) Oral Liqd Udc) 30 ml PO Q4H PRN PRN Reason: Constipation Morphine Sulfate (Morphine 2 Mg/1 Ml Inj) 2 mg IV Q4H PRN PRN Reason: Pain, Moderate (4-6) Morphine Sulfate (Morphine 4 Mg/1 Ml Inj) 4 mg IV Q4H PRN PRN Reason: Pain , Severe (7-10) Nitroglycerin (Nitroglycerin 0.4 Mg Tab Subl) 0.4 mg SL Q5M PRN PRN Reason: Chest Pain Ondansetron HCl (Ondansetron 4 Mg/2 Ml Inj) 4 mg IV Q8H PRN PRN Reason: Nausea And Vomiting Sodium Chloride (Sodium Chloride 0.9% 10 Ml Flush Syringe) 10 ml IV BID JOVANY Sodium Chloride (Sodium Chloride 0.9% 10 Ml Flush Syringe) 10 ml IV PRN PRN PRN Reason: LINE FLUSH Sodium Chloride (Sodium Chloride 0.9% 10 Ml Flush Syringe) 10 ml IV PRN PRN PRN Reason: LINE FLUSH Tramadol HCl (Tramadol 50 Mg Tab) 50 mg PO Q6H PRN PRN Reason: Pain, Moderate (4-6) Review of Systems Constitutional: no fever, no chills Ears, nose, mouth and throat: no nasal congestion, no sore throat Cardiovascular: chest pain, no palpitations Respiratory: no cough, no shortness of breath Gastrointestinal: no abdominal pain, no nausea, no vomiting, no diarrhea Genitourinary Female: no pelvic pain, no flank pain, no dysuria, no hematuria Musculoskeletal: no neck pain, no low back pain Integumentary: no rash, no pruritis Neurological: no headaches, no confusion Psychiatric: no anxiety, no insomnia, no depression Endocrine: no polyphagia, no polydipsia, no polyuria, no nocturia Exam - Constitutional Vitals: Temp Pulse Resp BP Pulse Ox 88 18 183/112 100 01/30/21 04:00 01/30/21 04:00 01/30/21 04:00 01/30/21 04:00 General appearance: Present: no acute distress, well-nourished - EENT Eyes: Present: PERRL, EOM intact. Absent: scleral icterus ENT: hearing intact, clear oral mucosa, dentition normal - Neck Neck: Present: supple, normal ROM - Respiratory Respiratory effort: normal Respiratory: bilateral: CTA - Cardiovascular Rhythm: regular Heart Sounds: Present: S1 & S2. Absent: gallop, systolic murmur, diastolic murmur, rub, click - Extremities Extremities: no ischemia, pulses intact, pulses symmetrical, No edema, normal temperature, normal color, Full ROM Peripheral Pulses: within normal limits - Abdominal General gastrointestinal: Present: soft, non-tender, non-distended, normal bowel sounds. Absent: mass - Integumentary Integumentary: Present: clear, warm, dry, normal turgor. Absent: rash - Musculoskeletal Musculoskeletal: strength equal bilaterally - Psychiatric Psychiatric: appropriate mood/affect, intact judgment & insight, memory intact, cooperative - Neurologic Neurologic: CNII-XII intact, no focal deficits, moves all extremities HEART Score - HEART Score History: Moderately suspicious EKG: Non-specific Age: 45-65 Risk factors: 1-2 risk factors Troponin: Troponin T < 0.010 ng/mL (0.00-0.029) 01/30/21 01:02 Troponin: < normal limit HEART Score: 4 Results - Labs CBC & Chem 7: 01/30/21 04:20 01/30/21 04:20 Labs: Abnormal lab results 01/30/21 01/30/21 01/30/21 Range/Units 01:02 01:02 04:20 WBC 4.1 L (4.5-11.0) K/mm3 Hgb 7.8 L 7.8 L (10.1-14.3) gm/dl Hct 27.1 L 27.1 L (30.3-42.9) % MCV 67 L 66 L (79-97) fl MCH 19 L 19 L (28-32) pg MCHC 29 L 29 L (30-34) % RDW 20.9 H 20.8 H (13.2-15.2) % BUN 6 L (7-17) mg/dL NT-Pro-B Natriuret Pep 620.2 H (0-450) pg/mL 01/30/21 Range/Units 04:20 WBC (4.5-11.0) K/mm3 Hgb (10.1-14.3) gm/dl Hct (30.3-42.9) % MCV (79-97) fl MCH (28-32) pg MCHC (30-34) % RDW (13.2-15.2) % BUN 5 L (7-17) mg/dL NT-Pro-B Natriuret Pep (0-450) pg/mL Assessment and Plan - Patient Problems (1) Chest pain Current Visit: No Status: Acute Plan to address problem: Patient admitted and placed on telemetry. We will check serial cardiac enzymes. Patient commenced on daily aspirin, sublingual nitroglycerin and IV morphine as needed for chest pain. We will await evaluation by cardiology. (2) Chronic systolic CHF (congestive heart failure) Current Visit: No Status: Acute Plan to address problem: We will continue patient on diuretics, monitor inputs and outputs and also monitor daily weight. Patient will be scheduled for echocardiogram. (3) Anemia Current Visit: Yes Status: Acute Plan to address problem: Chronic. Patient on iron pills. Will monitor CBC. (4) DVT prophylaxis Current Visit: Yes Status: Acute Plan to address problem: Patient placed on subcutaneous heparin. (5) Full code status Current Visit: Yes Status: Acute Plan to address problem: Patient is full code.
[2021-01-30] MEDS: HEPARIN 5,000 UNIT/1 ML VIAL SUB-Q SCH ×2 (06:24→17:02)
[2021-01-30] MEDS ORDERED: carvediloL 6.25 MG TAB PO SCH (08:00)
[2021-01-30] MEDS ORDERED: REGADENOSON 0.4 MG/5 ML INJ IV ONE (09:22)
[2021-01-30] MEDS ORDERED: NON-FORMULARY EACH (Atorvastatin Tablet) PO SCH (10:00)
[2021-01-30] MEDS ORDERED: FUROSEMIDE 40 MG TAB PO SCH (10:00)
[2021-01-30] MEDS ORDERED: FERROUS GLUCONATE 324 MG TAB PO SCH (10:00)
--- NOTE | 2021-01-30 10:58 | Event Note ---
Date: 01/30/21 This is a follow-up from an admission earlier this morning. Patient seen and examined. We will continue to plan as outlined in H&P. Follow-up stress test and echocardiogram. Await cardiology recommendations. Total visit time equals 35 minutes with greater than 50% spent on coordination of care and counseling.
[2021-01-30 11:37] LABS: Total Cells Counted 100
[2021-01-30 11:38] LABS: Anisocytosis 1+; Hypochromasia 2+; Ovalocytes Few; Platelet Estimate Consistent w Auto
--- NOTE | 2021-01-30 14:16 | Electrocardiograph Report ---
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
--- NOTE | 2021-01-30 14:16 | Electrocardiograph Report ---
[facility] Test Date: 2021-01-30 Test Time: 00:06:27 Pat Name: NADEGE NEWSOME Department: ED Room: A484 1 Gender: F [employer]ified [employer] Specialist: AYAN : 1970 Requested By: JACINTO WRIGHT Order Number: [id number] Reading MD: Elizabeth Ricardo Measurements Intervals [place] Rate: 88 P: 73 [place]: 161 QRS: -125 QRSD: 156 T: 53 QT: 410 QTc: 496 Interpretive Statements Sinus rhythm Right atrial enlargement Right bundle branch block No previous ECG available for comparison Electronically Signed On 01-30-2021 14:15:34 EDT by Elizabeth Ricardo
--- NOTE | 2021-01-30 14:19 | Electrocardiograph Report ---
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
--- NOTE | 2021-01-30 14:40 | Discharge Summary ---
Providers - Providers Date of Admission: 01/30/21 04:10 Date of discharge: 01/30/21 Attending physician: AYLIN BRENNER 01/30/21 Consult to Cardiac Rehabilitation [CONS] Routine Reason For Exam: Phase I 01/30/21 04:11 Consult to Cardiology [CONS] Routine Consulting Provider: RADHA ASHTON Reason For Exam: CHEST PAIN Primary care physician: BULK PICKER Hospitalization Reason for admission: CP Condition: Stable Hospital course: 50-year-old female with known history of hypertension, CHF, history of coronary artery disease with PR in the past presents to the emergency room today complaining of chest pain. Chest pain was said to have started while sleeping and was suddenly woken up with a left-sided chest pain. She had associated diaphoresis and shortness of breath. [facility] and anemia. Cardiology saw the pt in consultation and performed echocardiogram and Stress test that reportedly is negative per Dr. Ashton. However, cardiology weants to perform cardiac cath on Tuesday. I d/w Nurse that the pt can discharge home only if pt is agreeable and compliant with coming for Cath on Tuesday as an outpatient including having appropriate transportation. I agree with discharge only if pt agreeable to compliance given high risk of nosocomial infection., etc. Dedicated d/c time 35 minutes Disposition: HOME / SELF CARE / HOMELESS Final Discharge Diagnosis (Prints w/discharge instructions): Chest pain etiology likey costochondritis. anemia, chronic chf Core Measure Documentation - Palliative Care Palliative Care/ Comfort Measures: Not Applicable - Core Measures Any of the following diagnoses?: none Exam - Constitutional Vitals: Temp Pulse Resp BP Pulse Ox 98.2 F 81 20 153/94 100 01/30/21 08:41 01/30/21 08:41 01/30/21 08:41 01/30/21 10:43 01/30/21 08:41 General appearance: Present: no acute distress, well-nourished - EENT Eyes: Present: PERRL ENT: hearing intact, clear oral mucosa - Neck Neck: Present: supple, normal ROM - Respiratory Respiratory effort: normal Respiratory: bilateral: CTA - Cardiovascular Heart Sounds: Present: S1 & S2. Absent: rub, click - Extremities Extremities: pulses symmetrical, No edema Peripheral Pulses: within normal limits - Abdominal General gastrointestinal: Present: soft, non-tender, non-distended, normal bowel sounds Female genitourinary: Present: normal - Integumentary Integumentary: Present: clear, warm, dry - Musculoskeletal Musculoskeletal: gait normal, strength equal bilaterally - Psychiatric Psychiatric: appropriate mood/affect, intact judgment & insight - Neurologic Neurologic: CNII-XII intact, moves all extremities Plan Activity: advance as tolerated Weight Bearing Status: Full Weight Bearing Diet: low fat, low cholesterol, low salt Additional Instructions: Pt needs to follow up with outpatient cardiac cath on tuesday with Dr. Ashton Follow up with: PRIMARY CARE, [Primary Care Provider] - 7 Days
--- NOTE | 2021-01-30 16:35 | Consultation ---
History of Present Illness Consult date: 01/30/21 Requesting physician: TRAE COHEN Consult reason: chest pain History of present illness: Patient a 50-year-old female with a past medical history of HFrEF, hypertension, coronary artery disease with [place], anemia who presented to the ED with a complaint of chest pain that started last night. Patient states that over the last several months she has some intermittent tightness in her chest that is relieved when she takes her diuretic. She describes the pain as achy and says it feels like a toothache. She normally rates the pain at a 4 out of 10. She reports that as of last night her pain suddenly got worse rating it at 10 out of 10 and states she developed shortness of breath and fatigue so she came to the hospital. Patient denies nausea, vomiting, lightheadedness. Patient was previously seen by our practice during an admission in 2019. She has not followed up since. Cardiology is consulted for chest pain Past History Past Medical History: acute [place], anemia, heart failure, hypertension, hyperlipidemia Past Surgical History: Other (Tubal ligation) Social history: smoking (Current daily smoker), alcohol abuse (Drinks alcohol quite frequently) Family history: no significant family history Medications and Allergies Allergies Allergy/AdvReac Type Severity Reaction Status Date / Time lisinopril AdvReac Angioedema Verified 11/05/18 12:21 Home Medications Medication Instructions Recorded Confirmed Last Taken Type Albuterol Sulfate [Proventil Hfa] 6.7 gm IH Q4H PRN #1 hfa.[id number].[email or web address] 03/12/19 01/30/21 01/13/21 Rx Aspirin [Adult Aspirin] 81 mg PO DAILY #30 03/12/19 01/30/21 1 Day Ago Rx ~01/29/21 AtorvaSTATin 20 mg PO DAILY #30 03/12/19 01/30/21 1 Day Ago Rx ~01/29/21 Ferrous Gluconate [Ferrous 324 mg PO BID #60 tablet 03/12/19 01/30/21 1 Day Ago Rx Gluconate 324 MG] ~01/29/21 Furosemide [Lasix TAB] 40 mg PO QDAY #30 03/12/19 01/30/21 1 Day Ago Rx ~01/29/21 carvediloL [Coreg] 6.25 mg PO BIDWM #60 03/12/19 01/30/21 1 Day Ago Rx ~01/29/21 Aspirin EC [Halfprin EC] 81 mg PO QDAY tablet 01/30/21 Unknown Rx AtorvaSTATin [Lipitor] 20 mg PO QHS tablet 01/30/21 Unknown Rx Active Meds: Active Medications Acetaminophen (Acetaminophen 325 Mg Tab) 650 mg PO Q4H PRN PRN Reason: Pain MILD(1-3)/Fever >100.5/[place] Aspirin (Aspirin Ec 81 Mg Tab) 81 mg PO QDAY [facility] Atorvastatin Calcium (Atorvastatin 20 Mg Tab) 20 mg PO QHS [facility] Carvedilol (Carvedilol 6.25 Mg Tab) 6.25 mg PO 0800,1700 [facility] Last Admin: 01/30/21 14:46 Dose: Not Given Documented by: Ferrous Gluconate (Ferrous Gluconate 324 Mg Tab) 324 mg PO BID [facility] Last Admin: 01/30/21 14:47 Dose: Not Given Documented by: Furosemide (Furosemide 40 Mg Tab) 40 mg PO QDAY [facility] Heparin Sodium (Porcine) (Heparin 5,000 Unit/1 Ml Vial) 5,000 unit SUB-Q Q8HR [facility] Last Admin: 01/30/21 06:24 Dose: 5,000 unit Documented by: Magnesium Hydroxide (Magnesium Hydroxide (Mom) Oral Liqd Udc) 30 ml PO Q4H PRN PRN Reason: Constipation Morphine Sulfate (Morphine 2 Mg/1 Ml Inj) 2 mg IV Q4H PRN PRN Reason: Pain, Moderate (4-6) Morphine Sulfate (Morphine 4 Mg/1 Ml Inj) 4 mg IV Q4H PRN PRN Reason: Pain , Severe (7-10) Nitroglycerin (Nitroglycerin 0.4 Mg Tab Subl) 0.4 mg SL Q5M PRN PRN Reason: Chest Pain Ondansetron HCl (Ondansetron 4 Mg/2 Ml Inj) 4 mg IV Q8H PRN PRN Reason: Nausea And Vomiting Sodium Chloride (Sodium Chloride 0.9% 10 Ml Flush Syringe) 10 ml IV BID [facility] Sodium Chloride (Sodium Chloride 0.9% 10 Ml Flush Syringe) 10 ml IV PRN PRN PRN Reason: LINE FLUSH Sodium Chloride (Sodium Chloride 0.9% 10 Ml Flush Syringe) 10 ml IV PRN PRN PRN Reason: LINE FLUSH Tramadol HCl (Tramadol 50 Mg Tab) 50 mg PO Q6H PRN PRN Reason: Pain, Moderate (4-6) Review of Systems Constitutional: fatigue, no chills, no sweats, no night sweats Ears, nose, mouth and throat: no nasal congestion, no nasal discharge, no sinus pressure Cardiovascular: chest pain, shortness of breath, no orthopnea, no palpitations Respiratory: cough, shortness of breath Gastrointestinal: no abdominal pain, no nausea, no vomiting, no diarrhea Musculoskeletal: no neck stiffness, no neck pain, no shooting arm pain Integumentary: no rash, no pruritis, no sores Neurological: no head injury, no transient paralysis Psychiatric: no anxiety, no memory loss Endocrine: no cold intolerance, no heat intolerance Physical Examination Vital Signs Pulse Ox 100 01/29/21 23:54 General appearance: no acute distress HEENT: Positive: PERRL Neck: Positive: trachea midline Cardiac: Positive: Reg Rate and Rhythm Lungs: Positive: clear to auscultation, Normal Breath Sounds Neuro: Positive: Grossly Intact Abdomen: Positive: Soft, Active Bowel Sounds Skin: Negative: Rash, Suspicious Lesions, Ulceration Extremities: Present: upper extr. pulses, lower extr. pulses. Absent: edema Results 01/30/21 04:20 01/30/21 04:20 Cardiac Enzymes 01/30/21 01/30/21 01/30/21 Range/Units 01:02 01:02 01:02 WBC 4.6 (4.5-11.0) K/mm3 RBC 4.07 (3.65-5.03) M/mm3 Hgb 7.8 L (10.1-14.3) gm/dl Hct 27.1 L (30.3-42.9) % MCV 67 L (79-97) fl MCH 19 L (28-32) pg MCHC 29 L (30-34) % RDW 20.9 H (13.2-15.2) % Plt Count 273 (140-440) K/mm3 Add Manual Diff Complete Total Counted 100 Seg Neuts % (Manual) 70.0 (40.0-70.0) % Band Neutrophils % % Lymphocytes % (Manual) 27.0 (13.4-35.0) % Reactive Lymphs % (Man) % Monocytes % (Manual) 1.0 (0.0-7.3) % Eosinophils % (Manual) 2.0 (0.0-4.3) % Promyelocytes % % Nucleated RBC % Not Reportable Seg Neutrophils # Man 3.2 (1.8-7.7) K/mm3 Band Neutrophils # 0.0 K/mm3 Lymphocytes # (Manual) 1.2 (1.2-5.4) K/mm3 Abs React Lymphs (Man) 0.0 K/mm3 Monocytes # (Manual) 0.0 (0.0-0.8) K/mm3 Eosinophils # (Manual) 0.1 (0.0-0.4) K/mm3 Basophils # (Manual) 0.0 (0.0-0.1) K/mm3 Metamyelocytes # 0.0 K/mm3 Myelocytes # 0.0 K/mm3 Promyelocytes # 0.0 K/mm3 Blast Cells # 0.0 K/mm3 WBC Morphology Not Reportable Hypersegmented Neuts Not Reportable Hyposegmented Neuts Not Reportable Hypogranular Neuts Not Reportable Smudge Cells Not Reportable Toxic Granulation Not Reportable Toxic Vacuolation Not Reportable Dohle Bodies Not Reportable Pelger-Huet Anomaly Not Reportable Jessi Rods Not Reportable Platelet Estimate Consistent w auto Clumped Platelets Not Reportable Plt Clumps, EDTA Not Reportable Large Platelets Not Reportable Giant Platelets Not Reportable Platelet Satelliting Not Reportable Plt Morphology Comment Not Reportable RBC Morphology Not Reportable Dimorphic RBCs Not Reportable Polychromasia Not Reportable Hypochromasia 2+ Poikilocytosis Not Reportable Anisocytosis 1+ Microcytosis 1+ Macrocytosis Not Reportable Spherocytes Not Reportable Pappenheimer Bodies Not Reportable Sickle Cells Not Reportable Target Cells Not Reportable Tear Drop Cells Not Reportable Ovalocytes Few Helmet Cells Not Reportable Bhat-[place] Bodies Not Reportable [place] Rings Not Reportable [place] Cells Not Reportable Bite Cells Not Reportable Crenated Cell Not Reportable Elliptocytes Not Reportable Acanthocytes (Spur) Not Reportable Rouleaux Not Reportable Hemoglobin C Crystals Not Reportable Schistocytes Not Reportable Malaria parasites Not Reportable Bam Bodies Not Reportable Hem Pathologist Commnt No D-Dimer 174.85 (0-234) ng/mlDDU Sodium 142 (137-145) mmol/L Potassium 3.6 (3.6-5.0) mmol/L Chloride 106.1 (98-107) mmol/L Carbon Dioxide 23 (22-30) mmol/L Anion Gap 17 mmol/L BUN 6 L (7-17) mg/dL Creatinine 0.8 (0.6-1.2) mg/dL Estimated GFR > 60 ml/min BUN/Creatinine Ratio 8 % Glucose 84 (65-100) mg/dL Calcium 9.5 (8.4-10.2) mg/dL Total Creatine Kinase 93 (30-135) units/L CK-MB (CK-2) 1.6 (0.0-4.0) ng/mL CK-MB (CK-2) Rel Index 1.7 (0-4) Troponin T < 0.010 (0.00-0.029) ng/mL NT-Pro-B Natriuret Pep 620.2 H (0-450) pg/mL 01/30/21 01/30/21 01/30/21 Range/Units 04:20 04:20 14:49 WBC 4.1 L (4.5-11.0) K/mm3 RBC 4.09 (3.65-5.03) M/mm3 Hgb 7.8 L (10.1-14.3) gm/dl Hct 27.1 L (30.3-42.9) % MCV 66 L (79-97) fl MCH 19 L (28-32) pg MCHC 29 L (30-34) % RDW 20.8 H (13.2-15.2) % Plt Count 262 (140-440) K/mm3 Add Manual Diff Complete Total Counted 100 Seg Neuts % (Manual) 79.0 H (40.0-70.0) % Band Neutrophils % 1.0 % Lymphocytes % (Manual) 18.0 (13.4-35.0) % Reactive Lymphs % (Man) 1.0 % Monocytes % (Manual) (0.0-7.3) % Eosinophils % (Manual) (0.0-4.3) % Promyelocytes % 1.0 % Nucleated RBC % Not Reportable Seg Neutrophils # Man 3.2 (1.8-7.7) K/mm3 Band Neutrophils # 0.0 K/mm3 Lymphocytes # (Manual) 0.7 L (1.2-5.4) K/mm3 Abs React Lymphs (Man) 0.0 K/mm3 Monocytes # (Manual) 0.0 (0.0-0.8) K/mm3 Eosinophils # (Manual) 0.0 (0.0-0.4) K/mm3 Basophils # (Manual) 0.0 (0.0-0.1) K/mm3 Metamyelocytes # 0.0 K/mm3 Myelocytes # 0.0 K/mm3 Promyelocytes # 0.0 K/mm3 Blast Cells # 0.0 K/mm3 WBC Morphology Not Reportable Hypersegmented Neuts Not Reportable Hyposegmented Neuts Not Reportable Hypogranular Neuts Not Reportable Smudge Cells Not Reportable Toxic Granulation Not Reportable Toxic Vacuolation Not Reportable Dohle Bodies Not Reportable Pelger-Huet Anomaly Not Reportable Jessi Rods Not Reportable Platelet Estimate Consistent w auto Clumped Platelets Not Reportable Plt Clumps, EDTA Not Reportable Large Platelets Not Reportable Giant Platelets Not Reportable Platelet Satelliting Not Reportable Plt Morphology Comment Not Reportable RBC Morphology Not Reportable Dimorphic RBCs Not Reportable Polychromasia Not Reportable Hypochromasia 2+ Poikilocytosis Not Reportable Anisocytosis 1+ Microcytosis 1+ Macrocytosis Not Reportable Spherocytes Not Reportable Pappenheimer Bodies Not Reportable Sickle Cells Not Reportable Target Cells Not Reportable Tear Drop Cells Not Reportable Ovalocytes Few Helmet Cells Not Reportable Bhat-[place] Bodies Not Reportable [place] Rings Not Reportable Jef Cells Not Reportable Bite Cells Not Reportable Crenated Cell Not Reportable Elliptocytes Not Reportable Acanthocytes (Spur) Not Reportable Rouleaux Not Reportable Hemoglobin C Crystals Not Reportable Schistocytes Not Reportable Malaria parasites Not Reportable Bam Bodies Not Reportable Hem Pathologist Commnt No D-Dimer (0-234) ng/mlDDU Sodium 140 (137-145) mmol/L Potassium 3.6 (3.6-5.0) mmol/L Chloride 104.4 (98-107) mmol/L Carbon Dioxide 22 (22-30) mmol/L Anion Gap 17 mmol/L BUN 5 L (7-17) mg/dL Creatinine 0.7 (0.6-1.2) mg/dL Estimated GFR > 60 ml/min BUN/Creatinine Ratio 7 % Glucose 83 (65-100) mg/dL Calcium 9.3 (8.4-10.2) mg/dL Total Creatine Kinase (30-135) units/L CK-MB (CK-2) (0.0-4.0) ng/mL CK-MB (CK-2) Rel Index (0-4) Troponin T < 0.010 (0.00-0.029) ng/mL NT-Pro-B Natriuret Pep (0-450) pg/mL CBC 01/30/21 01/30/21 Range/Units 01:02 04:20 WBC 4.6 4.1 L (4.5-11.0) K/mm3 RBC 4.07 4.09 (3.65-5.03) M/mm3 Hgb 7.8 L 7.8 L (10.1-14.3) gm/dl Hct 27.1 L 27.1 L (30.3-42.9) % Plt Count 273 262 (140-440) K/mm3 Comprehensive Metabolic Panel 01/30/21 01/30/21 Range/Units 01:02 04:20 Sodium 142 140 (137-145) mmol/L Potassium 3.6 3.6 (3.6-5.0) mmol/L Chloride 106.1 104.4 (98-107) mmol/L Carbon Dioxide 23 22 (22-30) mmol/L BUN 6 L 5 L (7-17) mg/dL Creatinine 0.8 0.7 (0.6-1.2) mg/dL Glucose 84 83 (65-100) mg/dL Calcium 9.5 9.3 (8.4-10.2) mg/dL - Imaging and Cardiology Echo: pending EKG interpretations - Telemetry EKG Rhythm: Sinus Rhythm - EKG Sinus rhythms and dysrhythmias: sinus rhythm AV and intraventricular conduction: right bundle branch block Assessment and Plan Patient a 50-year-old female with a past medical history of HFrEF, hypertension, coronary artery disease with [place], anemia who presented to the ED with a complaint of chest pain that started last night cardiac catheterization 02/2017- which showed no significant obstructive disease. She was noted to have a apical clot at that time and ejection fraction was about 30% Echo 11/04/2018-EF 35 to 40%, left ventricular systolic function mild to moderately decreased, right ventricular systolic function normal. Echo 01/30/2021- preliminary results EF 30-35% Plan: EKG shows sinus rhythm 88, right bundle branch block no signs of acute ischemic changes. Troponin negative x2. AMI ruled out Agree with aspirin Coreg and Lipitor. No MARTY or ARB due to allergy Lexiscan MPI stress test 01/30/2021-abnormal with reduced EF 24% Patient currently chest pain-free. Patient cardiac status is stable for discharge Patient scheduled for cardiac cath on Tuesday. Patient instructed to be n.p.o. after midnight - Patient Problems (1) Anemia Current Visit: Yes Status: Acute (2) Cardiomyopathy Current Visit: No Status: Acute (3) Chest pain Current Visit: No Status: Acute (4) Chronic systolic CHF (congestive heart failure) Current Visit: No Status: Acute (5) Uterine fibroid Current Visit: No Status: Acute
[2021-01-30 16:42] VITALS: BP 145/77
--- NOTE | 2021-01-31 01:40 | Treadmill Report ---
DATE OF SERVICE: 01/30/2021 NUCLEAR PERFUSION SCAN REFERRING PHYSICIAN: Dr. Miller. PROTOCOL: The patient was assessed in postabsorptive state, given 10 mCi of technetium-99m at rest. The patient had rest imaging. The patient underwent Lexiscan stress test per standard protocol. At peak stress, the patient given 26 mCi technetium-99m. Shortly thereafter, the patient underwent stress imaging. Raw imaging reveals mild GI artifact, no significant motion artifact. There is a large densely fixed anterior and anterior apical defect consistent with a significant prior myocardial infarction. Gated wall motion reveals corresponding wall motion abnormality. Ejection fraction 24%. CONCLUSIONS: 1. Abnormal myocardial perfusion scan with a densely fixed anterior and anterior apical defect consistent with large prior myocardial infarction. No evidence of reversible ischemia. 2. Corresponding wall motion abnormality with EF of 24%. TID: [id number] RECEIPT: [id number] ALINA/FARHAD
[2021-01-31] MEDS ORDERED: ASPIRIN EC 325 MG TAB PO SCH ×2 (10:00)
[2021-01-31] MEDS ORDERED: ASPIRIN EC 81 MG TAB PO SCH (10:00)
== END 2021-01-30 17:58 | disposition home or self-care (01) ==
LOC: ED 23:37 → 4A 01-30 04:10
PROVIDERS: ADMIT Internal Medicine Geriatric Medicine; ATTEND Hospitalist
DX: R07.89 Other chest pain (principal); I11.0 Hypertensive heart disease with heart failure; I50.22 Chronic systolic (congestive) heart failure; D64.9 Anemia, unspecified; I25.2 Old myocardial infarction; I42.9 Cardiomyopathy, unspecified; D25.9 Leiomyoma of uterus, unspecified; E78.5 Hyperlipidemia, unspecified; F17.210 Nicotine dependence, cigarettes, uncomplicated; Z98.51 Tubal ligation status; Z79.82 Long term (current) use of aspirin
CPT/HCPCS: 36415; 71045; 78452; 80048; 82550; 82553; 83880; 84484; 85025; 85379; 93005; 93017; 93306; 96372; 99284; A9502; G0378; J1644; J2785; 85007

== ENCOUNTER 2021-12-22 03:32 | Emergency (ER) | payer MEDICAID ==
[2021-12-22 03:48] VITALS: BP 145/95
== END 2021-12-22 12:41 | disposition left against medical advice (07) ==
LOC: ED 03:32
DX: R10.32 Left lower quadrant pain (principal); R53.1 Weakness; Z53.21 Procedure and treatment not carried out due to patient leaving prior to being seen by health care provider